=== PATIENT | male | born 1960 | race African-American/Black ===

== ENCOUNTER 2016-12-01 08:50 | Inpatient (IN) | payer OTHER ==
[2016-12-01] VITALS (18 sets, daily range): BP systolic 154–213; BP diastolic 78–118
[~2016-12-01] VITALS: Ht 177.8 cm; Wt 92.2 kg
[~2016-12-01 08:50] MED LIST: CARV6.252 PO; CYCL10TA2 PO; FURO20TA3 PO; FURO40TA4 PO; HYDR-2666 PO; HYDR-2868 PO; ISOS30TA4 PO; LISI-338 PO; METO25TA4 PO; PANT40TA5 PO; PRED20TA PO
--- NOTE | 2016-12-01 09:51 | PHYS DOC ---
Past Medical History Past Medical History: CHF, Hypertension, ME Past Surgical History: No Surgical History Alcohol Use: Sober Drug Use: None Adult General Chief Complaint Chief Complaint: OTHER COMPLAINTS [facility] HPI Patient is a 56 year old male presents emergency department stating that he wanted his blood pressure checked. He states that he had visiting doctors at his house yesterday that checked his blood pressure and it was elevated. Patient is a very poor historian as he is unable to provide me with a doctor's name of his primary care physician, he states that he takes blood pressure medication although does not know the name of the medication does not know whether he has the pill bottles at home. It is not sure for he obtains his prescription at. Patient denies any chest pain although he does state that he has had chest pain on and off. He denies any blurred vision, denies any lower leg swelling or edema. Review of Systems Review of Systems Constitutional: Denies fever or chills [] Eyes: Denies change in visual acuity, redness, or eye pain [] HENT: Denies nasal congestion or sore throat [] Respiratory: Denies cough or shortness of breath [] Cardiovascular: No additional information not addressed in HPI [] GI: Denies abdominal pain, nausea, vomiting, bloody stools or diarrhea [] : Denies dysuria or hematuria [] Musculoskeletal: Denies back pain or joint pain [] Integument: Denies rash or skin lesions [] Neurologic: Denies headache, focal weakness or sensory changes [] Endocrine: Denies polyuria or polydipsia [] Patient states he is here for evaluation of his blood pressure Current Medications Current Medications Current Medications Medications (Trade) Dose Ordered Sig/[facility] Start Time Stop Time Status Last Admin Dose Admin Aspirin (Children'S Aspirin) 324 mg 1X ONCE 12/01/16 10:15 12/01/16 10:16 DC 12/01/16 10:24 324 MG Nitroglycerin (Nitrostat) 0.4 mg PRN Q5MIN PRN 12/01/16 10:30 12/01/16 11:12 0.4 MG Allergies Allergies Allergies Coded Allergies Type Severity Reaction Last Updated Verified I S O L A T I O N *CONTACT* Allergy Unknown 12/17/15 Yes No Known Medication Allergies Allergy Unknown 12/17/15 Yes Physical Exam Physical Exam Constitutional: Well developed, well nourished, no acute distress, non-toxic appearance. [] HENT: Normocephalic, atraumatic, bilateral external ears normal, oropharynx moist, no oral exudates, nose normal. [] Eyes: PERRLA, EOMI, conjunctiva normal, no discharge. [] Neck: Normal range of motion, no tenderness, supple, no stridor. [] Cardiovascular:Heart rate regular rhythm, no murmur [] Lungs & Thorax: Bilateral breath sounds clear to auscultation [] Abdomen: Bowel sounds hypoactive, soft, no tenderness, no masses, no pulsatile masses. [] Skin: Warm, dry, no erythema, no rash. [] Back: No tenderness Extremities: No tenderness, no cyanosis, no clubbing, ROM intact, no edema. [] Neurologic: Alert and oriented X 3, normal motor function, normal sensory function, no focal deficits noted. [] Psychologic: Affect normal, judgement normal, mood normal. [] Current Patient Data Vital Signs Vital Signs Date Time Temp Pulse Resp B/P (MAP) Pulse Ox O2 Delivery O2 Flow Rate FiO2 12/01/16 11:12 67 187/119 12/01/16 10:17 19 99 12/01/16 09:13 98.4 Room Air 98.4 Lab Values Laboratory Tests Test 12/01/16 09:27 White Blood Count 7.1 x10^3/uL (4.0-11.0) Red Blood Count 5.17 x10^6/uL (4.30-5.70) Hemoglobin 13.3 g/dL (13.0-17.5) Hematocrit 41.5 % (39.0-53.0) Mean Corpuscular Volume 80 fL (79-100) Mean Corpuscular Hemoglobin 26 pg (25-35) Mean Corpuscular Hemoglobin Concent 32 g/dL (31-37) Red Cell Distribution Width 20.0 % (11.5-14.5) H Platelet Count 322 x10^3/uL (140-400) Neutrophils (%) (Auto) 51 % (31-73) Lymphocytes (%) (Auto) 37 % (24-48) Monocytes (%) (Auto) 9 % (0-9) Eosinophils (%) (Auto) 2 % (0-3) Basophils (%) (Auto) 1 % (0-3) Neutrophils # (Auto) 3.7 x10^3uL (1.8-7.7) Lymphocytes # (Auto) 2.6 x10^3/uL (1.0-4.8) Monocytes # (Auto) 0.6 x10^3/uL (0.0-1.1) Eosinophils # (Auto) 0.2 x10^3/uL (0.0-0.7) Basophils # (Auto) 0.1 x10^3/uL (0.0-0.2) Sodium Level 141 mmol/L (136-145) Potassium Level 4.0 mmol/L (3.5-5.1) Chloride Level 104 mmol/L (98-107) Carbon Dioxide Level 27 mmol/L (21-32) Anion Gap 10 (6-14) Blood Urea Nitrogen 19 mg/dL (8-26) Creatinine 1.3 mg/dL (0.7-1.3) Estimated GFR (Cockcroft-Gault) 69.1 BUN/Creatinine Ratio 15 (6-20) Glucose Level 120 mg/dL (70-99) H Calcium Level 9.5 mg/dL (8.5-10.1) Total Bilirubin 0.8 mg/dL (0.2-1.0) Aspartate Amino Transferase (AST) 22 U/L (15-37) Alanine Aminotransferase (ALT) 22 U/L (16-63) Alkaline Phosphatase 94 U/L (46-116) Troponin I Quantitative 0.526 ng/mL (0.000-0.055) Total Protein 8.7 g/dL (6.4-8.2) H Albumin 3.8 g/dL (3.4-5.0) Albumin/Globulin Ratio 0.8 (1.0-1.7) L Laboratory Tests 12/01/16 09:27 Laboratory Tests 12/01/16 09:27 EKG EKG [] Radiology/Procedures Radiology/Procedures [] Course & Med Decision Making Course & Med Decision Making Pertinent Labs and Imaging studies reviewed. (See chart for details) Spoke with patient in regards to being placed in to the hospital [address] Herr about patient being place into the hospital with recommendation for inpatient status. Dr Herr aware of BP, CBC, CMP, EKG. He has recommended hydralazine for BP at this time. Orders completed. [] Dragon Disclaimer Dragon Disclaimer This electronic medical record was generated, in whole or in part, using a voice recognition dictation system. Departure Departure Impression: Primary Impression: Elevated troponin Additional Impression: HTN (hypertension) Disposition: ADMITTED INPATIENT Admitting Physician: Chrsi Herr Referrals: NO PCP (PCP) Problem Qualifiers ANALI WILKERSON APRN December 01, 2016 09:51
[2016-12-01 09:57] LABS: BASO # 0.1 x10^3/uL (0.0-0.2); BASO % 1 % (0-3); EOS % 2 % (0-3); HEMATOCRIT 41.5 % (39.0-53.0); HEMOGLOBIN 13.3 g/dL (13.0-17.5); LYMPH # 2.6 x10^3/uL (1.0-4.8); LYMPH % 37 % (24-48); MEAN CORPUSCULAR HEMOGLOBIN 26 pg (25-35); MEAN CORPUSCULAR HGB CONC 32 g/dL (31-37); MEAN CORPUSCULAR VOLUME 80 fL (79-100); MONO % 9 % (0-9); NEUT % 51 % (31-73); PLATELET COUNT 322 x10^3/uL (140-400); RED BLOOD COUNT 5.17 x10^6/uL (4.30-5.70); WHITE BLOOD COUNT 7.1 x10^3/uL (4.0-11.0)
[2016-12-01 10:01] LABS: CALCIUM 9.5 mg/dL (8.5-10.1); CREATININE 1.3 mg/dL (0.7-1.3); GFR 69.1
[2016-12-01 10:07] LABS: ALBUMIN 3.8 g/dL (3.4-5.0); ALBUMIN/GLOBULIN RATIO 0.8 (1.0-1.7); TOTAL BILIRUBIN 0.8 mg/dL (0.2-1.0); TOTAL PROTEIN 8.7 g/dL (6.4-8.2)
[2016-12-01] MEDS ORDERED: ASPIRIN CHEWABLE 81 MG TABLET. PO ONE (10:15)
[2016-12-01] MEDS: NITROGLYCERIN SUBLINGUAL 0.4 MG BOTTLE OF 25. SL PRN ×2 (10:25→11:12)
--- NOTE | 2016-12-01 10:33 | EKG ---
[facility] [address] [place] [address] Test Date: 2016-12-01 Test Time: 10:00:41 Pat Name: TESFAYE CUEVAS Department: Room: Gender: M Obstetrics Nurse Practitioner: : 1960 Requested By: ANALI WILKERSON Order Number: [id number] Reading MD: Leatha Flowers Measurements Intervals [place] Rate: 80 P: 14 FL: 140 QRS: -11 QRSD: 102 T: 148 QT: 394 QTc: 458 Interpretive Statements SINUS RHYTHM LEFT ATRIAL ABNORMALITY LEFTWARD AXIS LVH WITH REPOLARIZATION ABNORMALITY ALSO CONSIDER MYOCARDIAL ISCHEMIA RI6.01 Unconfirmed report Electronically Signed On 12-03-2016 21:49:02 CDT by Leatha Flowers
--- NOTE | 2016-12-01 10:47 | RAD ---
Portable chest, 12/01/2016: History: High blood pressure, chest pain Comparison is made to a study from 01/12/2016. The heart is enlarged. There is tortuosity of the thoracic aorta. The pulmonary vascularity is normal. No pulmonary infiltrates are seen. There is no evidence of pleural fluid. IMPRESSION: 1. Mild cardiomegaly. 2. No acute abnormality is detected.
[2016-12-01] MEDS ORDERED: hydrALAZINE 20 MG/ML VIAL. IVP ONE (11:15)
--- NOTE | 2016-12-01 12:01 | ACF ---
Admit Criteria Forms Admit Criteria Forms Admit Criteria Forms HYPERTENSION Clinical Indications for Admission to Inpatient Care ( Place "X" for any and all applicable criteria): Admission is indicated for ANY ONE of the following(1)(2)(3)(4): [ ]I. Hypertensive emergency, with evidence of acute and progressing target organ disease as indicated by ANY ONE of the following: [ ]a) Hypertensive encephalopathy (eg, confusion, altered mental status) [ ]b) Cerebral infarction [ ]c) Intracranial hemorrhage [ ]d) Myocardial ischemia or infarction [ ]e) Pulmonary edema [ ]f) Aortic dissection [ ]g) Seizure [ ]h) Acute renal insufficiency [ ]i) Papilledema [ ]j) Microangiopathic hemolytic anemia [ ]II. Adrenergic crisis (eg, severe hypertension due to pheochromocytoma crisis, cocaine or amphetamine intoxication, or clonidine withdrawal) [X]III. Severe hypertension (SBP greater than 180 mmHg or DBP greater than 110 mmHg or greater than the 95th percentile for age, gender, and height in pediatric patients) that cannot be controlled (eg, to SBP less than 160 mmHg and DBP less than 100 mmHg in adults) by treatment with oral medication in emergency department or observation care Extended stay beyond goal length of stay may be needed for(11)(12)(13): [ ]a) Persistent hypertensive encephalopathy [ ]b) Continuation of pulmonary edema [ ]c) Recurring or persistent severe hypertension [ ]d) Target organ damage (eg, angina, stroke, aortic dissection) [ ]e) Associated renal insufficiency The original BDA content created by BDA has been revised. The portions of the content which have been revised are identified through the use of italic text or in bold, and [facility] has neither reviewed nor approved the modified material. All other unmodified content is copyright BDA. Please see references footnoted in the original BDA edition 2016 NANCIE OLVERA December 01, 2016 12:01
[2016-12-01] MEDS: LISINOPRIL 10 MG TABLET PO SCH (12:49)
[2016-12-01] MEDS: CARVEDILOL 12.5 MG TABLET. PO SCH ×2 (12:50→17:45)
[2016-12-01] MEDS: ISOSORBIDE MONONITRATE ER 30 MG TAB.ER.24H PO SCH (12:50)
--- NOTE | 2016-12-01 13:41 | PDOC1 ---
History and Physical Past Medical History Cardiovascular: HTN Pulmonary: No pertinent hx CENTRAL NERVOUS SYSTEM: Other GI: No pertinent hx Heme/Onc: No pertinent hx Hepatobiliary: No pertinent hx Psych: No pertinent hx Rheumatologic: No pertinent hx Infectious disease: No pertinent hx Renal/: No pertinent hx Endocrine: No pertinent hx Past Surgical History Past Surgical History: No pertinent history Family History Family History: Diabetes, Hypertension Social History ALCOHOL: other Drugs: None Current Problem List Problem List Problems Medical Problems: (1) Elevated troponin Status: Acute (2) HTN (hypertension) Status: Acute Current Medications Current Medications Current Medications Medications (Trade) Dose Ordered Sig/Deann Start Time Stop Time Status Last Admin Dose Admin Aspirin (Children'S Aspirin) 324 mg 1X ONCE 12/01/16 10:15 12/01/16 10:16 DC 12/01/16 10:24 324 MG Carvedilol (Coreg) 12.5 mg BIDWMEALS 12/01/16 12:45 12/01/16 12:50 12.5 MG Hydralazine HCl (Apresoline) 10 mg PRN Q4HRS PRN 12/01/16 12:45 Isosorbide Mononitrate (Imdur) 30 mg DAILY 12/01/16 12:45 12/01/16 12:50 30 MG Lisinopril (Prinivil) 10 mg DAILY 12/01/16 12:45 12/01/16 12:49 10 MG Nicardipine HCl 50 mg/Sodium Chloride 270 ml @ 0 mls/hr CONT PRN 12/01/16 13:30 UNV Nitroglycerin (Nitrostat) 0.4 mg PRN Q5MIN PRN 12/01/16 10:30 12/01/16 11:12 0.4 MG Allergies Allergies Allergies Coded Allergies Type Severity Reaction Last Updated Verified I S O L A T I O N *CONTACT* Allergy Unknown 12/17/15 Yes No Known Medication Allergies Allergy Unknown 12/17/15 Yes ROS Review of System CONSTITUTIONAL: No fever or chills EYES: No recent changes SKIN: No rash or itching CARDIOVASCULAR: Chest pain RESPIRATORY: No SOB or cough GASTROINTESTINAL: No nausea, vomiting or abdominal pain NEUROLOGICAL: No headaches or weakness ENDOCRINE: No cold or heat intolerance GENITOURINARY: No urgency or frequency of urination MUSCULOSKELETAL: No back pain or joint pain LYMPHATICS: No enlarged lymph nodes PSYCHIATRIC: No anxiety or depression Physical Exam Physical Exam GEN.: No apparent distress. Alert and oriented. HEENT: Head is normocephalic, atraumatic NECK: Supple. no JV LUNGS: Clear to auscultation.Normal airflow. HEART: RRR, S1, S2 present. Peripheral pulses intact ABDOMEN: Soft, nontender. Positive bowel sounds. umbical hernia EXTREMITIES: Without any cyanosis. NEUROLOGIC: Normal speech, normal tone PSYCHIATRIC: Normal affect, normal mood. SKIN: No ulcerations Vitals Vitals Vital Signs Date Time Temp Pulse Resp B/P (MAP) Pulse Ox O2 Delivery O2 Flow Rate FiO2 12/01/16 12:50 74 213/118 12/01/16 12:34 98.3 20 97 Room Air 98.3 Labs Labs Laboratory Tests Test 12/01/16 09:27 White Blood Count 7.1 x10^3/uL (4.0-11.0) Red Blood Count 5.17 x10^6/uL (4.30-5.70) Hemoglobin 13.3 g/dL (13.0-17.5) Hematocrit 41.5 % (39.0-53.0) Mean Corpuscular Volume 80 fL (79-100) Mean Corpuscular Hemoglobin 26 pg (25-35) Mean Corpuscular Hemoglobin Concent 32 g/dL (31-37) Red Cell Distribution Width 20.0 % (11.5-14.5) Platelet Count 322 x10^3/uL (140-400) Neutrophils (%) (Auto) 51 % (31-73) Lymphocytes (%) (Auto) 37 % (24-48) Monocytes (%) (Auto) 9 % (0-9) Eosinophils (%) (Auto) 2 % (0-3) Basophils (%) (Auto) 1 % (0-3) Neutrophils # (Auto) 3.7 x10^3uL (1.8-7.7) Lymphocytes # (Auto) 2.6 x10^3/uL (1.0-4.8) Monocytes # (Auto) 0.6 x10^3/uL (0.0-1.1) Eosinophils # (Auto) 0.2 x10^3/uL (0.0-0.7) Basophils # (Auto) 0.1 x10^3/uL (0.0-0.2) Sodium Level 141 mmol/L (136-145) Potassium Level 4.0 mmol/L (3.5-5.1) Chloride Level 104 mmol/L (98-107) Carbon Dioxide Level 27 mmol/L (21-32) Anion Gap 10 (6-14) Blood Urea Nitrogen 19 mg/dL (8-26) Creatinine 1.3 mg/dL (0.7-1.3) Estimated GFR (Cockcroft-Gault) 69.1 BUN/Creatinine Ratio 15 (6-20) Glucose Level 120 mg/dL (70-99) Calcium Level 9.5 mg/dL (8.5-10.1) Total Bilirubin 0.8 mg/dL (0.2-1.0) Aspartate Amino Transf (AST/SGOT) 22 U/L (15-37) Alanine Aminotransferase (ALT/SGPT) 22 U/L (16-63) Alkaline Phosphatase 94 U/L (46-116) Troponin I Quantitative 0.526 ng/mL (0.000-0.055) Total Protein 8.7 g/dL (6.4-8.2) Albumin 3.8 g/dL (3.4-5.0) Albumin/Globulin Ratio 0.8 (1.0-1.7) Laboratory Tests Test 12/01/16 09:27 White Blood Count 7.1 x10^3/uL (4.0-11.0) Red Blood Count 5.17 x10^6/uL (4.30-5.70) Hemoglobin 13.3 g/dL (13.0-17.5) Hematocrit 41.5 % (39.0-53.0) Mean Corpuscular Volume 80 fL (79-100) Mean Corpuscular Hemoglobin 26 pg (25-35) Mean Corpuscular Hemoglobin Concent 32 g/dL (31-37) Red Cell Distribution Width 20.0 % (11.5-14.5) Platelet Count 322 x10^3/uL (140-400) Neutrophils (%) (Auto) 51 % (31-73) Lymphocytes (%) (Auto) 37 % (24-48) Monocytes (%) (Auto) 9 % (0-9) Eosinophils (%) (Auto) 2 % (0-3) Basophils (%) (Auto) 1 % (0-3) Neutrophils # (Auto) 3.7 x10^3uL (1.8-7.7) Lymphocytes # (Auto) 2.6 x10^3/uL (1.0-4.8) Monocytes # (Auto) 0.6 x10^3/uL (0.0-1.1) Eosinophils # (Auto) 0.2 x10^3/uL (0.0-0.7) Basophils # (Auto) 0.1 x10^3/uL (0.0-0.2) Sodium Level 141 mmol/L (136-145) Potassium Level 4.0 mmol/L (3.5-5.1) Chloride Level 104 mmol/L (98-107) Carbon Dioxide Level 27 mmol/L (21-32) Anion Gap 10 (6-14) Blood Urea Nitrogen 19 mg/dL (8-26) Creatinine 1.3 mg/dL (0.7-1.3) Estimated GFR (Cockcroft-Gault) 69.1 BUN/Creatinine Ratio 15 (6-20) Glucose Level 120 mg/dL (70-99) Calcium Level 9.5 mg/dL (8.5-10.1) Total Bilirubin 0.8 mg/dL (0.2-1.0) Aspartate Amino Transf (AST/SGOT) 22 U/L (15-37) Alanine Aminotransferase (ALT/SGPT) 22 U/L (16-63) Alkaline Phosphatase 94 U/L (46-116) Troponin I Quantitative 0.526 ng/mL (0.000-0.055) Total Protein 8.7 g/dL (6.4-8.2) Albumin 3.8 g/dL (3.4-5.0) Albumin/Globulin Ratio 0.8 (1.0-1.7) VTE Prophylaxis Ordered VTE Prophylaxis Devices: Yes VTE Pharmacological Prophylaxi: Yes MONICA PATIÑO MD December 01, 2016 13:41
--- NOTE | 2016-12-01 14:49 | PDOC2 ---
CARDIAC CONSULT DATE OF CONSULT Date of Consult DATE: 12/01/16 TIME: 14:30 REASON FOR CONSULT Reason for Consult: Elevated troponin REFERRING PHYSICIAN Referring Physician: Melita Ortiz APRN SOURCE Source: Chart review, Patient HISTORY OF PRESENT ILLNESS HISTORY OF PRESENT ILLNESS This is an 56 yo male who presented secondary to BP. Apparently home care nurse was out at home yesterday and noted to be elevated. Recommended patient to come to the ED for treatment but he waited until this morning to come. Patient poor historian and unable to give details of provider or medications. Reports that his mother sets up his medications for him. Referred me to contact his mother. Contacted Massiel Arce, mother, who provided me with his medication list. Reports he has been compliant with his medications. Although she was not home, reports that doctor and nurse came to the home yesterday and noted his blood pressure to be elevated. Called in two new prescriptions to [facility] ( medications not known) and encouraged him to go to the ED for BP treatment. Patient additionally reports occasional chest pain for the last week intermittently. Describes as an aching in his left chest. Denies any nausea/ vomiting, dizziness, diaphoresis, palpitations, or SOA. PAST MEDICAL HISTORY Cardiovascular: CHF (NICM), HTN, [place] (NSTEMI), Hyperlipidemia, Other Pulmonary: No pertinent hx GI: GI bleed (s/p endoclips ) Hepatobiliary: No pertinent hx Psych: No pertinent hx Rheumatologic: No pertinent hx Infectious disease: No pertinent hx ENT: No pertinent hx Renal/: No pertinent hx Endocrine: No pertinent hx Dermatology: No pertinent hx PAST SURGICAL HISTORY Past Surgical History: No pertinent history FAMILY HISTORY Family History: Hypertension SOCIAL HISTORY Smoke: 1 pack per day ALCOHOL: occassional Drugs: None Lives: with Family CURRENT MEDICATIONS CURRENT MEDICATIONS Current Medications Medications (Trade) Dose Ordered Sig/Deann Route PRN Reason Start Time Stop Time Status Last Admin Dose Admin Aspirin (Children'S Aspirin) 324 mg 1X ONCE PO 12/01/16 10:15 12/01/16 10:16 DC 12/01/16 10:24 Nitroglycerin (Nitrostat) 0.4 mg PRN Q5MIN PRN SL CHEST PAIN 12/01/16 10:30 12/01/16 11:12 Hydralazine HCl (Apresoline) 10 mg 1X ONCE IVP 12/01/16 11:15 12/01/16 11:24 DC 12/01/16 11:33 Isosorbide Mononitrate (Imdur) 30 mg DAILY PO 12/01/16 12:45 12/01/16 12:50 Lisinopril (Prinivil) 10 mg DAILY PO 12/01/16 12:45 12/01/16 12:49 Carvedilol (Coreg) 12.5 mg BIDWMEALS PO 12/01/16 12:45 12/01/16 12:50 Nicardipine HCl 50 mg/Sodium Chloride 270 ml @ 25 mls/hr CONT PRN IV SEE I/O RECORD 12/01/16 14:00 12/01/16 13:38 ALLERGIES ALLERGIES: Coded Allergies: I S O L A T I O N *CONTACT* (Verified Allergy, Unknown, 12/17/15) mrsa screen + No Known Medication Allergies (Verified Allergy, Unknown, 12/17/15) ROS Review of System 14 point ROS conducted with pertinent positives noted above in HPI although limited as patient is a poor historian. PHYSICAL EXAM General: Alert, Oriented X3, Cooperative, No acute distress HEENT: Atraumatic, Mucous membr. moist/pink Lungs: Clear to auscultation, Normal air movement Heart: Regular rate, Normal S1, Normal S2 Abdomen: Soft, No tenderness Extremities: No edema, Normal pulses Skin: No significant lesion Neuro: Normal speech, Sensation intact Psych/Mental Status: Mental status NL, Mood NL MUSCULOSKELETAL: Full range of motion without pain VITALS VITALS Vital Signs Date Time Temp Pulse Resp B/P (MAP) Pulse Ox O2 Delivery O2 Flow Rate FiO2 12/01/16 12:50 74 213/118 12/01/16 12:34 98.3 20 97 Room Air 98.3 LABS Lab: Laboratory Tests Test 12/01/16 09:27 White Blood Count 7.1 x10^3/uL (4.0-11.0) Red Blood Count 5.17 x10^6/uL (4.30-5.70) Hemoglobin 13.3 g/dL (13.0-17.5) Hematocrit 41.5 % (39.0-53.0) Mean Corpuscular Volume 80 fL (79-100) Mean Corpuscular Hemoglobin 26 pg (25-35) Mean Corpuscular Hemoglobin Concent 32 g/dL (31-37) Red Cell Distribution Width 20.0 % (11.5-14.5) Platelet Count 322 x10^3/uL (140-400) Neutrophils (%) (Auto) 51 % (31-73) Lymphocytes (%) (Auto) 37 % (24-48) Monocytes (%) (Auto) 9 % (0-9) Eosinophils (%) (Auto) 2 % (0-3) Basophils (%) (Auto) 1 % (0-3) Neutrophils # (Auto) 3.7 x10^3uL (1.8-7.7) Lymphocytes # (Auto) 2.6 x10^3/uL (1.0-4.8) Monocytes # (Auto) 0.6 x10^3/uL (0.0-1.1) Eosinophils # (Auto) 0.2 x10^3/uL (0.0-0.7) Basophils # (Auto) 0.1 x10^3/uL (0.0-0.2) Sodium Level 141 mmol/L (136-145) Potassium Level 4.0 mmol/L (3.5-5.1) Chloride Level 104 mmol/L (98-107) Carbon Dioxide Level 27 mmol/L (21-32) Anion Gap 10 (6-14) Blood Urea Nitrogen 19 mg/dL (8-26) Creatinine 1.3 mg/dL (0.7-1.3) Estimated GFR (Cockcroft-Gault) 69.1 BUN/Creatinine Ratio 15 (6-20) Glucose Level 120 mg/dL (70-99) Calcium Level 9.5 mg/dL (8.5-10.1) Total Bilirubin 0.8 mg/dL (0.2-1.0) Aspartate Amino Transf (AST/SGOT) 22 U/L (15-37) Alanine Aminotransferase (ALT/SGPT) 22 U/L (16-63) Alkaline Phosphatase 94 U/L (46-116) Troponin I Quantitative 0.526 ng/mL (0.000-0.055) Total Protein 8.7 g/dL (6.4-8.2) Albumin 3.8 g/dL (3.4-5.0) Albumin/Globulin Ratio 0.8 (1.0-1.7) ECHOCARDIOGRAM ECHOCARDIOGRAM DATE: 12/15/15 1116 <Conclusion> Severe global left ventricular systolic dysfunction. The Ejection Fraction is estimated at 15-20%. Moderate aortic regurgitation. Mild mitral regurgitation. Mild tricuspid regurgitation. There is mild pulmonary hypertension. The PA pressure was estimated at 45 mmHg. There is a trace circumferential pericardial effusion. DATE: 05/04/16 1442 Conclusion> Left ventricle systolic function is normal. The Ejection Fraction is 50-55%. There is normal LV segmental wall motion. Mild to moderate aortic regurgitation. Mild mitral regurgitation. The ascending aorta is mildly dilated at 4.0 cm. There is no evidence of significant pericardial effusion. HEART CATH HEART CATH FINDINGS 1. Hemodynamics: Left ventricular end-diastolic pressure 20 mmHg. No pullback gradient across the aortic valve. 2. Coronary angiography: a. The left main coronary artery arose from the left sinus of Valsalva, gave rise to the left anterior descending and left circumflex arteries and did not show any significant stenosis. b. The left anterior descending artery did not show any significant stenosis. c. The left circumflex artery was a large and dominant vessel that did not show any significant stenosis. d. The right coronary artery was a nondominant vessel that did not show any significant stenosis. Conclusion No significant coronary artery disease DATE: 12/16/15 1305 ASSESSMENT/PLAN ASSESSMENT/PLAN 1. NSTEMI, likely type II demand ischemia related to malignant HTN 2. Chest pain, atypical; cath 12/25 without obstructive disease 3. Malignant hypertension; improved with Cardene gtt. 4. H/o non-ischemic cardiomyopathy with LV recovery to 50-55% (04/26); previously 15-20% 5. Hyperlipidemia 6. Tobaccoism; encouraged cessation Recommendations Trend enzymes. Doubt ACS. Check lipids Echo to evaluate LV function/presence of WMA Resume home antiHTN therapy; titrate off Cardene as able. Increase JOÃO and BB. Monitor trends to assess need for further titration. Hydralazine IV PRN Problems: EL MO APRN December 01, 2016 14:49
[2016-12-01] MEDS ORDERED: LISI10TA2 PO (18:51)
[2016-12-01] MEDS ORDERED: CARV12.52 PO (18:51)
[2016-12-01] MEDS: hydrALAZINE 25 MG TABLET PO SCH (20:24)
[2016-12-01 21:03] LABS: BARBITURATES NEG (NEG); BENZODIAZEPINES NEG (NEG); CANNABINOIDS NEG (NEG); COCAINE NEG (NEG); METHADONE NEG (NEG); OPIATES NEG (NEG); PHENCYCLIDINE NEG (NEG)
[2016-12-01] MEDS: hydrALAZINE 20 MG/ML VIAL. IVP PRN (23:53)
[2016-12-02] VITALS (9 sets, daily range): BP systolic 116–178; BP diastolic 70–93
[2016-12-02 03:03] LABS: BASO # 0.1 x10^3/uL (0.0-0.2); BASO % 1 % (0-3); EOS % 3 % (0-3); HEMATOCRIT 39.8 % (39.0-53.0); HEMOGLOBIN 12.6 g/dL (13.0-17.5); LYMPH # 2.6 x10^3/uL (1.0-4.8); LYMPH % 33 % (24-48); MEAN CORPUSCULAR HEMOGLOBIN 25 pg (25-35); MEAN CORPUSCULAR HGB CONC 32 g/dL (31-37); MEAN CORPUSCULAR VOLUME 80 fL (79-100); MONO % 9 % (0-9); NEUT % 54 % (31-73); PLATELET COUNT 315 x10^3/uL (140-400); RED BLOOD COUNT 4.98 x10^6/uL (4.30-5.70); RED CELL DISTRIBUTION WIDTH 19.1 % (11.5-14.5)
[2016-12-02 03:19] LABS: CALCIUM 8.8 mg/dL (8.5-10.1); CREATININE 1.2 mg/dL (0.7-1.3); GFR 75.8; POTASSIUM 3.7 mmol/L (3.5-5.1)
[2016-12-02 03:28] LABS: CHOLESTEROL/HDL RATIO 5.4
[2016-12-02] MEDS: hydrALAZINE 20 MG/ML VIAL. IVP PRN (04:18)
--- NOTE | 2016-12-02 07:17 | HP ---
ADMIT DATE: 12/01/2016 CHIEF COMPLAINT: Chest pain. HISTORY OF PRESENT ILLNESS: A 56-year-old male patient with a prior history of hypertension, presented to the ER with complaints of chest pain. The patient initially presented to the ER to check his blood pressure as per the report, the patient had elevated blood pressures noted by visiting physician and the patient says his mom helps him to give his medications, but he did not recall his home medications. He complains of chest pain on the left side. It comes and goes and denies any nausea, vomiting, sweating or radiation. 10/19, The patient had nonischemic cardiomyopathy in 2015, LV ejection fraction improved with IV diuresis in the past. PAST MEDICAL HISTORY: Nonischemic cardiomyopathy, hypertension. PAST SURGICAL HISTORY: None. PERSONAL HISTORY: Currently, not taking any alcohol, but smokes less than 1 pack a day. No substance abuse. FAMILY HISTORY: Please see my electronic H and P. REVIEW OF SYSTEMS: Please see my electronic H and P. PHYSICAL EXAMINATION: Please see my electronic H and P. ALLERGIES: Please see my electronic H and P. LABORATORY FINDINGS: BMP within normal limits. Troponin is 0.526. PT is 17.0, INR is 1.5. Hematology: CBC within normal limits. IMAGING STUDIES: Chest x-ray, no acute process seen. EKG personally reviewed, LVH with strain pattern. No acute ST-T wave changes seen, compared with old EKG. ASSESSMENT AND PLAN: 1. Chest pain with mild elevation of troponins, likely due to uncontrolled hypertension. Type NSTEMI 2. Malignant hypertension, present on admission. Blood pressure 213/118. Did not improve with IV hydralazine. He has been started on nicardipine drip, goal today SBP< 170. 3. The patient was started on Coreg, lisinopril and Imdur. 4. Old records reviewed. He had a cardiac catheterization in 2016, has normal coronaries. 5. welfare worker consult. 6. Prognosis guarded. 7. Nicotine patch PRN MONICA PATIÑO MD DR: GINGER/prema JOB#: [id number] / [id number] [id number]
[2016-12-02] MEDS: CARVEDILOL 12.5 MG TABLET. PO SCH ×2 (08:45→17:40)
[2016-12-02] MEDS: FUROSEMIDE 40 MG TABLET. PO SCH ×2 (08:46→14:53)
[2016-12-02] MEDS: ISOSORBIDE MONONITRATE ER 30 MG TAB.ER.24H PO SCH (08:46)
[2016-12-02] MEDS: LISINOPRIL 10 MG TABLET PO SCH (08:46)
[2016-12-02] MEDS: hydrALAZINE 25 MG TABLET PO SCH ×2 (08:47→20:43)
[2016-12-02] MEDS ORDERED: LISINOPRIL 10 MG TABLET PO ONE (10:45)
--- NOTE | 2016-12-02 10:48 | PDOC ---
EL MO DENTAL APPLIANCE REPAIRER 12/02/16 1048: CARDIO Progress Notes Date and Time Date of Service 12/02/16 Time of Evaluation 1035 Subjective Subjective: No Chest Pain, No shortness of breath Vitals Vitals Vital Signs Date Time Temp Pulse Resp B/P (MAP) Pulse Ox O2 Delivery O2 Flow Rate FiO2 12/02/16 08:47 93 153/93 12/02/16 07:47 Room Air 12/02/16 07:00 98.3 18 96 98.3 Weight Weight [ ] Input and Output Intake and Output Intake and Output 12/02/16 07:00 Intake Total 916.33 ml Output Total 1225 ml Balance -308.67 ml Intake Oral 760 ml IV Total 156.33 ml Output Urine Total 1225 ml Laboratory Labs Laboratory Tests Test 12/01/16 15:10 12/01/16 17:55 12/01/16 23:05 12/02/16 02:25 Urine Opiates Screen Neg (NEG) Urine Methadone Screen Neg (NEG) Urine Barbiturates Neg (NEG) Urine Phencyclidine Screen Neg (NEG) Urine Amphetamine/Methamphetamine Neg (NEG) Urine Benzodiazepines Screen Neg (NEG) Urine Cocaine Screen Neg (NEG) Urine Cannabinoids Screen Neg (NEG) Urine Ethyl Alcohol Neg (NEG) Troponin I Quantitative 0.554 ng/mL (0.000-0.055) 0.521 ng/mL (0.000-0.055) White Blood Count 8.0 x10^3/uL (4.0-11.0) Red Blood Count 4.98 x10^6/uL (4.30-5.70) Hemoglobin 12.6 g/dL (13.0-17.5) Hematocrit 39.8 % (39.0-53.0) Mean Corpuscular Volume 80 fL (79-100) Mean Corpuscular Hemoglobin 25 pg (25-35) Mean Corpuscular Hemoglobin Concent 32 g/dL (31-37) Red Cell Distribution Width 19.1 % (11.5-14.5) Platelet Count 315 x10^3/uL (140-400) Neutrophils (%) (Auto) 54 % (31-73) Lymphocytes (%) (Auto) 33 % (24-48) Monocytes (%) (Auto) 9 % (0-9) Eosinophils (%) (Auto) 3 % (0-3) Basophils (%) (Auto) 1 % (0-3) Neutrophils # (Auto) 4.3 x10^3uL (1.8-7.7) Lymphocytes # (Auto) 2.6 x10^3/uL (1.0-4.8) Monocytes # (Auto) 0.7 x10^3/uL (0.0-1.1) Eosinophils # (Auto) 0.2 x10^3/uL (0.0-0.7) Basophils # (Auto) 0.1 x10^3/uL (0.0-0.2) Sodium Level 139 mmol/L (136-145) Potassium Level 3.7 mmol/L (3.5-5.1) Chloride Level 102 mmol/L (98-107) Carbon Dioxide Level 27 mmol/L (21-32) Anion Gap 10 (6-14) Blood Urea Nitrogen 18 mg/dL (8-26) Creatinine 1.2 mg/dL (0.7-1.3) Estimated GFR (Cockcroft-Gault) 75.8 Glucose Level 114 mg/dL (70-99) Calcium Level 8.8 mg/dL (8.5-10.1) Triglycerides Level 124 mg/dL (0-150) Cholesterol Level 177 mg/dL (0-200) LDL Cholesterol, Calculated 119 mg/dL (0-100) VLDL Cholesterol, Calculated 25 mg/dL (0-40) Non-HDL Cholesterol Calculated 144 mg/dL (0-129) HDL Cholesterol 33 mg/dL (40-60) Cholesterol/HDL Ratio 5.4 Physical Exam HEENT: Neck Supple W Full Motion Chest: Symmetric LUNGS: Clear to Auscultation Heart: RRR Abdomen: Normal Aortic Impulse, Soft N/T Extremities: 2+ Dorsalis Pedis, No Edema Neurology: alert, oriented, follow commands Assessment Assessment 1. NSTEMI, likely type II demand ischemia related to malignant HTN 2. Chest pain, atypical; cath 12/25 without obstructive disease 3. Malignant hypertension; improved but remains labile. Cardene gtt off. 4. H/o non-ischemic cardiomyopathy with LV recovery to 50-55% (04/26); previously 15-20% 5. Hyperlipidemia; LDL 119 6. Tobaccoism; encouraged cessation 7. Limited social support; now with HH Recommendations Will increase JOÃO for better BP control Echo pending to evaluate LV function/presence of WMA. If no significant abnormalities, may discharge from a CV standpoint and f/u in our office in 3-4 weeks. Monitor trends to assess need for further titration. Hydralazine IV PRN Discussed importance of medication compliance ABI RAMIREZ MD 12/02/16 1549: CARDIO Progress Notes Assessment Assessment Patient seen and examined. Agree with DUPLICATOR PUNCH SET UP OPERATOR's assessment and plan. Non-STEMI type II most probably secondary to subendocardial ischemia from accelerated hypertension Blood pressure much better controlled and patient is presently off Cardene Continue current medical regimen EL MO APRN December 02, 2016 10:48 ABI RAMIREZ MD December 02, 2016 15:49
--- NOTE | 2016-12-02 12:54 | PDOC ---
PROGRESS NOTES Chief Complaint Chief Complaint cc: chest pain A/P Malignant HTN NSTEMI type 2 Plan off nicardipine gtt Bp medications adjusted, wait for response, Echo pending d/w cardiology. History of Present Illness History of Present Illness no chest pain no fever doing better. Vitals Vitals Vital Signs Date Time Temp Pulse Resp B/P (MAP) Pulse Ox O2 Delivery O2 Flow Rate FiO2 12/02/16 11:02 87 116/74 12/02/16 11:00 98.9 18 96 Room Air 98.9 Physical Exam General: Alert, Oriented X3, Cooperative, No acute distress Heart: Regular rate, Normal S1, Normal S2 Lungs: Clear Abdomen: Soft, No tenderness Extremities: No edema, Normal pulses Skin: No significant lesion Labs LABS Laboratory Tests Test 12/01/16 15:10 12/01/16 17:55 12/01/16 23:05 12/02/16 02:25 Urine Opiates Screen Neg (NEG) Urine Methadone Screen Neg (NEG) Urine Barbiturates Neg (NEG) Urine Phencyclidine Screen Neg (NEG) Urine Amphetamine/Methamphetamine Neg (NEG) Urine Benzodiazepines Screen Neg (NEG) Urine Cocaine Screen Neg (NEG) Urine Cannabinoids Screen Neg (NEG) Urine Ethyl Alcohol Neg (NEG) Troponin I Quantitative 0.554 ng/mL (0.000-0.055) 0.521 ng/mL (0.000-0.055) White Blood Count 8.0 x10^3/uL (4.0-11.0) Red Blood Count 4.98 x10^6/uL (4.30-5.70) Hemoglobin 12.6 g/dL (13.0-17.5) Hematocrit 39.8 % (39.0-53.0) Mean Corpuscular Volume 80 fL (79-100) Mean Corpuscular Hemoglobin 25 pg (25-35) Mean Corpuscular Hemoglobin Concent 32 g/dL (31-37) Red Cell Distribution Width 19.1 % (11.5-14.5) Platelet Count 315 x10^3/uL (140-400) Neutrophils (%) (Auto) 54 % (31-73) Lymphocytes (%) (Auto) 33 % (24-48) Monocytes (%) (Auto) 9 % (0-9) Eosinophils (%) (Auto) 3 % (0-3) Basophils (%) (Auto) 1 % (0-3) Neutrophils # (Auto) 4.3 x10^3uL (1.8-7.7) Lymphocytes # (Auto) 2.6 x10^3/uL (1.0-4.8) Monocytes # (Auto) 0.7 x10^3/uL (0.0-1.1) Eosinophils # (Auto) 0.2 x10^3/uL (0.0-0.7) Basophils # (Auto) 0.1 x10^3/uL (0.0-0.2) Sodium Level 139 mmol/L (136-145) Potassium Level 3.7 mmol/L (3.5-5.1) Chloride Level 102 mmol/L (98-107) Carbon Dioxide Level 27 mmol/L (21-32) Anion Gap 10 (6-14) Blood Urea Nitrogen 18 mg/dL (8-26) Creatinine 1.2 mg/dL (0.7-1.3) Estimated GFR (Cockcroft-Gault) 75.8 Glucose Level 114 mg/dL (70-99) Calcium Level 8.8 mg/dL (8.5-10.1) Triglycerides Level 124 mg/dL (0-150) Cholesterol Level 177 mg/dL (0-200) LDL Cholesterol, Calculated 119 mg/dL (0-100) VLDL Cholesterol, Calculated 25 mg/dL (0-40) Non-HDL Cholesterol Calculated 144 mg/dL (0-129) HDL Cholesterol 33 mg/dL (40-60) Cholesterol/HDL Ratio 5.4 Assessment and Plan Assessmemt and Plan Problems Medical Problems: (1) Elevated troponin Status: Acute (2) HTN (hypertension) Status: Acute Problems: Comment Review of Relevant I have reviewed the following items amanda (where applicable) has been applied. Labs Laboratory Tests Test 12/01/16 09:27 12/01/16 15:10 12/01/16 17:55 12/01/16 23:05 White Blood Count 7.1 x10^3/uL (4.0-11.0) Red Blood Count 5.17 x10^6/uL (4.30-5.70) Hemoglobin 13.3 g/dL (13.0-17.5) Hematocrit 41.5 % (39.0-53.0) Mean Corpuscular Volume 80 fL (79-100) Mean Corpuscular Hemoglobin 26 pg (25-35) Mean Corpuscular Hemoglobin Concent 32 g/dL (31-37) Red Cell Distribution Width 20.0 % (11.5-14.5) Platelet Count 322 x10^3/uL (140-400) Neutrophils (%) (Auto) 51 % (31-73) Lymphocytes (%) (Auto) 37 % (24-48) Monocytes (%) (Auto) 9 % (0-9) Eosinophils (%) (Auto) 2 % (0-3) Basophils (%) (Auto) 1 % (0-3) Neutrophils # (Auto) 3.7 x10^3uL (1.8-7.7) Lymphocytes # (Auto) 2.6 x10^3/uL (1.0-4.8) Monocytes # (Auto) 0.6 x10^3/uL (0.0-1.1) Eosinophils # (Auto) 0.2 x10^3/uL (0.0-0.7) Basophils # (Auto) 0.1 x10^3/uL (0.0-0.2) Sodium Level 141 mmol/L (136-145) Potassium Level 4.0 mmol/L (3.5-5.1) Chloride Level 104 mmol/L (98-107) Carbon Dioxide Level 27 mmol/L (21-32) Anion Gap 10 (6-14) Blood Urea Nitrogen 19 mg/dL (8-26) Creatinine 1.3 mg/dL (0.7-1.3) Estimated GFR (Cockcroft-Gault) 69.1 BUN/Creatinine Ratio 15 (6-20) Glucose Level 120 mg/dL (70-99) Calcium Level 9.5 mg/dL (8.5-10.1) Total Bilirubin 0.8 mg/dL (0.2-1.0) Aspartate Amino Transf (AST/SGOT) 22 U/L (15-37) Alanine Aminotransferase (ALT/SGPT) 22 U/L (16-63) Alkaline Phosphatase 94 U/L (46-116) Troponin I Quantitative 0.526 ng/mL (0.000-0.055) 0.554 ng/mL (0.000-0.055) 0.521 ng/mL (0.000-0.055) Total Protein 8.7 g/dL (6.4-8.2) Albumin 3.8 g/dL (3.4-5.0) Albumin/Globulin Ratio 0.8 (1.0-1.7) Urine Opiates Screen Neg (NEG) Urine Methadone Screen Neg (NEG) Urine Barbiturates Neg (NEG) Urine Phencyclidine Screen Neg (NEG) Urine Amphetamine/Methamphetamine Neg (NEG) Urine Benzodiazepines Screen Neg (NEG) Urine Cocaine Screen Neg (NEG) Urine Cannabinoids Screen Neg (NEG) Urine Ethyl Alcohol Neg (NEG) Test 12/02/16 02:25 White Blood Count 8.0 x10^3/uL (4.0-11.0) Red Blood Count 4.98 x10^6/uL (4.30-5.70) Hemoglobin 12.6 g/dL (13.0-17.5) Hematocrit 39.8 % (39.0-53.0) Mean Corpuscular Volume 80 fL (79-100) Mean Corpuscular Hemoglobin 25 pg (25-35) Mean Corpuscular Hemoglobin Concent 32 g/dL (31-37) Red Cell Distribution Width 19.1 % (11.5-14.5) Platelet Count 315 x10^3/uL (140-400) Neutrophils (%) (Auto) 54 % (31-73) Lymphocytes (%) (Auto) 33 % (24-48) Monocytes (%) (Auto) 9 % (0-9) Eosinophils (%) (Auto) 3 % (0-3) Basophils (%) (Auto) 1 % (0-3) Neutrophils # (Auto) 4.3 x10^3uL (1.8-7.7) Lymphocytes # (Auto) 2.6 x10^3/uL (1.0-4.8) Monocytes # (Auto) 0.7 x10^3/uL (0.0-1.1) Eosinophils # (Auto) 0.2 x10^3/uL (0.0-0.7) Basophils # (Auto) 0.1 x10^3/uL (0.0-0.2) Sodium Level 139 mmol/L (136-145) Potassium Level 3.7 mmol/L (3.5-5.1) Chloride Level 102 mmol/L (98-107) Carbon Dioxide Level 27 mmol/L (21-32) Anion Gap 10 (6-14) Blood Urea Nitrogen 18 mg/dL (8-26) Creatinine 1.2 mg/dL (0.7-1.3) Estimated GFR (Cockcroft-Gault) 75.8 Glucose Level 114 mg/dL (70-99) Calcium Level 8.8 mg/dL (8.5-10.1) Triglycerides Level 124 mg/dL (0-150) Cholesterol Level 177 mg/dL (0-200) LDL Cholesterol, Calculated 119 mg/dL (0-100) VLDL Cholesterol, Calculated 25 mg/dL (0-40) Non-HDL Cholesterol Calculated 144 mg/dL (0-129) HDL Cholesterol 33 mg/dL (40-60) Cholesterol/HDL Ratio 5.4 Laboratory Tests Test 12/01/16 15:10 12/01/16 17:55 12/01/16 23:05 12/02/16 02:25 Urine Opiates Screen Neg (NEG) Urine Methadone Screen Neg (NEG) Urine Barbiturates Neg (NEG) Urine Phencyclidine Screen Neg (NEG) Urine Amphetamine/Methamphetamine Neg (NEG) Urine Benzodiazepines Screen Neg (NEG) Urine Cocaine Screen Neg (NEG) Urine Cannabinoids Screen Neg (NEG) Urine Ethyl Alcohol Neg (NEG) Troponin I Quantitative 0.554 ng/mL (0.000-0.055) 0.521 ng/mL (0.000-0.055) White Blood Count 8.0 x10^3/uL (4.0-11.0) Red Blood Count 4.98 x10^6/uL (4.30-5.70) Hemoglobin 12.6 g/dL (13.0-17.5) Hematocrit 39.8 % (39.0-53.0) Mean Corpuscular Volume 80 fL (79-100) Mean Corpuscular Hemoglobin 25 pg (25-35) Mean Corpuscular Hemoglobin Concent 32 g/dL (31-37) Red Cell Distribution Width 19.1 % (11.5-14.5) Platelet Count 315 x10^3/uL (140-400) Neutrophils (%) (Auto) 54 % (31-73) Lymphocytes (%) (Auto) 33 % (24-48) Monocytes (%) (Auto) 9 % (0-9) Eosinophils (%) (Auto) 3 % (0-3) Basophils (%) (Auto) 1 % (0-3) Neutrophils # (Auto) 4.3 x10^3uL (1.8-7.7) Lymphocytes # (Auto) 2.6 x10^3/uL (1.0-4.8) Monocytes # (Auto) 0.7 x10^3/uL (0.0-1.1) Eosinophils # (Auto) 0.2 x10^3/uL (0.0-0.7) Basophils # (Auto) 0.1 x10^3/uL (0.0-0.2) Sodium Level 139 mmol/L (136-145) Potassium Level 3.7 mmol/L (3.5-5.1) Chloride Level 102 mmol/L (98-107) Carbon Dioxide Level 27 mmol/L (21-32) Anion Gap 10 (6-14) Blood Urea Nitrogen 18 mg/dL (8-26) Creatinine 1.2 mg/dL (0.7-1.3) Estimated GFR (Cockcroft-Gault) 75.8 Glucose Level 114 mg/dL (70-99) Calcium Level 8.8 mg/dL (8.5-10.1) Triglycerides Level 124 mg/dL (0-150) Cholesterol Level 177 mg/dL (0-200) LDL Cholesterol, Calculated 119 mg/dL (0-100) VLDL Cholesterol, Calculated 25 mg/dL (0-40) Non-HDL Cholesterol Calculated 144 mg/dL (0-129) HDL Cholesterol 33 mg/dL (40-60) Cholesterol/HDL Ratio 5.4 Medications Current Medications Aspirin (Children'S Aspirin) 324 mg 1X ONCE PO Last administered on 12/01/16 10:24; Start 12/01/16 at 10:15; Stop 12/01/16 at 10:16; Status DC Nitroglycerin (Nitrostat) 0.4 mg PRN Q5MIN PRN SL CHEST PAIN Last administered on 12/01/16 11:12; Start 12/01/16 at 10:30 Hydralazine HCl (Apresoline) 10 mg 1X ONCE IVP Last administered on 12/01/16 11:33; Start 12/01/16 at 11:15; Stop 12/01/16 at 11:24; Status DC Isosorbide Mononitrate (Imdur) 30 mg DAILY PO Last administered on 12/02/16 08 :46; Start 12/01/16 at 12:45 Lisinopril (Prinivil) 10 mg DAILY PO Last administered on 12/02/16 08:46; Start 12/01/16 at 12:45; Stop 12/02/16 at 10:47; Status DC Carvedilol (Coreg) 12.5 mg BIDWMEALS PO Last administered on 12/02/16 08:45; Start 12/01/16 at 12:45 Hydralazine HCl (Apresoline) 10 mg PRN Q4HRS PRN IVP ELEVATED BP, SEE COMMENTS Last administered on 12/02/16 04:18; Start 12/01/16 at 12:45 Nicardipine HCl 50 mg/Sodium Chloride 270 ml @ 25 mls/hr CONT PRN IV SEE I/O RECORD Last administered on 12/01/16 13:38; Start 12/01/16 at 14:00 Furosemide (Lasix) 40 mg BID92 PO Last administered on 12/02/16 08:46; Start 12/02/16 at 09:00 Hydralazine HCl (Apresoline) 50 mg BID PO Last administered on 12/02/16 08:47 ; Start 12/01/16 at 21:00 Lisinopril (Prinivil) 10 mg 1X ONCE PO Last administered on 12/02/16 11:02; Start 12/02/16 at 10:45; Stop 12/02/16 at 10:48; Status DC Lisinopril (Prinivil) 20 mg DAILY PO ; Start 12/03/16 at 09:00 Active Scripts Active Hydralazine Hcl 25 Mg Tablet 50 Mg PO BID Isosorbide Mononitrate Er (Isosorbide Mononitrate) 30 Mg Tab.er.24h 30 Mg PO DAILY Furosemide 40 Mg Tablet 40 Mg PO [id number] Pantoprazole Sodium 40 Mg Tablet.dr 40 Mg PO DAILYAC Reported Lisinopril 10 Mg Tablet 1 Tab PO DAILY Carvedilol 12.5 Mg Tablet 1 Tab PO BID Vitals/I & O Vital Sign - Last 24 Hours 12/01/16 12/01/16 12/01/16 12/01/16 14:34 17:45 18:56 19:11 Temp 98.7 98.7 Pulse 71 88 Resp 18 B/P (MAP) 196/102 (133) 175/103 165/86 (112) 163/96 (118) Pulse Ox 96 O2 Delivery Room Air 12/01/16 12/01/16 12/01/16 12/01/16 19:30 19:41 19:56 20:11 Temp 98.1 98.1 Pulse 72 Resp 18 B/P (MAP) 156/82 (106) 185/99 (127) 171/91 (117) 173/88 (116) Pulse Ox 93 O2 Delivery Room Air 12/01/16 12/01/16 12/01/16 12/01/16 20:24 20:26 20:41 20:56 Pulse 73 B/P (MAP) 173/88 173/89 (117) 168/85 (112) 156/85 (108) 12/01/16 12/01/16 12/01/16 12/01/16 21:11 21:26 21:41 22:11 Pulse 72 66 B/P (MAP) 161/85 (110) 167/88 (114) 164/86 (112) 154/78 (103) 12/01/16 12/01/16 12/01/16 12/01/16 22:41 23:05 23:41 23:53 Temp 98.0 98.0 Pulse 73 73 Resp 18 B/P (MAP) 164/87 (112) 164/87 (112) 169/87 (114) 169/87 Pulse Ox 96 O2 Delivery Room Air 12/02/16 12/02/16 12/02/16 12/02/16 00:41 01:41 02:40 04:13 Temp 97.8 97.8 Pulse 81 Resp 18 B/P (MAP) 178/74 (108) 157/89 (111) 148/81 (103) 162/81 (108) Pulse Ox 98 O2 Delivery Room Air 12/02/16 12/02/16 12/02/16 12/02/16 04:18 07:00 07:47 08:45 Temp 98.3 98.3 Pulse 81 89 93 Resp 18 B/P (MAP) 162/81 153/93 (113) 153/93 Pulse Ox 96 O2 Delivery Room Air Room Air 12/02/16 12/02/16 12/02/16 12/02/16 08:46 08:46 08:47 11:00 Temp 98.9 98.9 Pulse 93 93 93 86 Resp 18 B/P (MAP) 153/93 153/93 153/93 116/74 (88) Pulse Ox 96 O2 Delivery Room Air 12/02/16 11:02 Pulse 87 B/P (MAP) 116/74 Intake and Output 12/01/16 12/01/16 12/02/16 15:00 23:00 07:00 Intake Total 556.33 ml 360 ml Output Total 325 ml 900 ml Balance 231.33 ml -540 ml MONICA PATIÑO MD December 02, 2016 12:54
[2016-12-02] MEDS ORDERED: CARV12.52 PO (16:33)
[2016-12-02] MEDS ORDERED: HYDR-2868 PO (16:33)
[2016-12-02] MEDS ORDERED: LISI10TA2 PO (16:33)
[2016-12-02] MEDS ORDERED: ISOS30TA4 PO (16:33)
[2016-12-02] MEDS ORDERED: FURO40TA4 PO (16:33)
--- NOTE | 2016-12-02 17:51 | CARD ---
APPROVED REPORT EXAM: Two-dimensional and M-mode echocardiogram with Doppler and color Doppler. Other Information Quality : GoodHR: 77bpm Rhythm : NSR INDICATION SOA,CP,HTN 2D DIMENSIONS Left Atrium(2D)4.0 (1.6-4.0cm)IVSd1.2 (0.7-1.1cm) Aortic Root(2D)3.3 (2.0-3.7cm)LVDd6.4 (3.9-5.9cm) PWd1.2 (0.7-1.1cm)LVDs4.6 (2.5-4.0cm) FS (%) 27.8 %SV111.3 ml LVEF(%)52.8 (>50%) Aortic Valve AoV Peak Harjit.169.8cm/sAoV VTI29.9cm AO Peak GR.11.5mmHgLVOT Peak Harjit.112.0cm/s AO Mean GR.6mmHgAI P 1/2 [id number] Mitral Valve MV E Yssfenip17.2cm/sMV E Peak Gr.8mmHg MV DECEL [id number] A Mjiqccqr512.0cm/s MV E Mean Gr.2mmHgE/A Ratio0.4 MV A [id number] Pulmonary Vein S1 Eiooorkq80.3cm/sD2 Ezorpkzn06.3cm/s PVa [id number] LEFT VENTRICLE The left ventricle is normal size. There is mild concentric left ventricular hypertrophy. Left ventri sima systolic function is mildly impaired. The Ejection Fraction is 40-45%. There is mild global hypok inesis of the left ventricle. Transmitral Doppler flow pattern is Grade I-abnormal relaxation pattern . There is no ventricular septal defect visualized. RIGHT VENTRICLE The right ventricle is normal size. There is normal right ventricular wall thickness. The right ventr icular systolic function is normal. ATRIA The left atrium is severely dilated. The right atrium size is normal. The interatrial septum is intac t with no evidence for an atrial septal defect or patent foramen ovale as noted on 2-D or Doppler bakari ging. The atrial septum is aneurysmal. AORTIC VALVE The aortic valve is mildly sclerotic. The aortic valve is trileaflet. Doppler and Color Flow revealed mild aortic regurgitation. There is no significant aortic valvular stenosis. MITRAL VALVE The mitral valve is normal in structure and function. There is no evidence of mitral valve prolapse. There is no mitral valve stenosis. TRICUSPID VALVE Doppler and Color Flow revealed no tricuspid valve regurgitation noted. There is no pulmonary hyperte nsion. PULMONIC VALVE Doppler and Color Flow revealed no pulmonic valvular regurgitation. There is no pulmonic valvular maite nosis. GREAT VESSELS The aortic root is normal in size. The ascending aorta is normal in size. The IVC is normal in size a nd collapses >50% with inspiration. PERICARDIAL EFFUSION There is no evidence of significant pericardial effusion. Critical Notification Critical Value: No <Conclusion> Left ventricle systolic function is mildly impaired. The Ejection Fraction is 40-45%. There is mild global hypokinesis of the left ventricle. Transmitral Doppler flow pattern is Grade I-abnormal relaxation pattern. There is mild concentric left ventricular hypertrophy. The interatrial septum is intact with no evidence for an atrial septal defect or patent foramen ovale as noted on 2-D or Doppler imaging. The atrial septum is aneurysmal. Doppler and Color Flow revealed mild aortic regurgitation.
[2016-12-02] MEDS ORDERED: LISINOPRIL 20 MG TABLET PO ONE (18:00)
[2016-12-03 03:00] VITALS: BP 149/86
[2016-12-03 07:25] VITALS: BP 166/85
[2016-12-03] MEDS: ISOSORBIDE MONONITRATE ER 30 MG TAB.ER.24H PO SCH (08:47)
[2016-12-03] MEDS: FUROSEMIDE 40 MG TABLET. PO SCH (08:47)
[2016-12-03] MEDS: CARVEDILOL 12.5 MG TABLET. PO SCH (08:48)
[2016-12-03] MEDS: hydrALAZINE 25 MG TABLET PO SCH (08:48)
[2016-12-03] MEDS ORDERED: LISINOPRIL 20 MG TABLET PO SCH (09:00)
[2016-12-03 11:12] VITALS: BP 150/90
--- NOTE | 2016-12-03 13:34 | PDOC ---
PROGRESS NOTES Chief Complaint Chief Complaint Chest pain Malignant HTN NSTEMI type 2 Non-ischemic cardiomyopathy History of Present Illness History of Present Illness no chest pain no fever doing better. Vitals Vitals Vital Signs Date Time Temp Pulse Resp B/P (MAP) Pulse Ox O2 Delivery O2 Flow Rate FiO2 12/03/16 11:12 98.5 73 14 150/90 (110) 95 Room Air 98.5 Physical Exam General: Alert, Oriented X3, Cooperative, No acute distress Heart: Regular rate, Normal S1, Normal S2 Lungs: Clear Abdomen: Soft, No tenderness Extremities: No edema, Normal pulses Skin: No significant lesion Assessment and Plan Assessmemt and Plan Problems Medical Problems: (1) Elevated troponin Status: Acute (2) HTN (hypertension) Status: Acute Chest pain Malignant HTN NSTEMI type 2 Non-ischemic cardiomyopathy Plan: -Cardiology managing BP meds -Echo results show EF 40-45% and mild LVH and LV hypokinesis- plan pending Cardio -Continue current management -Monitor blood pressure -Recheck am labs -PT/OT as appropriate -Subspecialty input appreciated -Discharge disposition pending Problems: Comment Review of Relevant I have reviewed the following items amanda (where applicable) has been applied. Labs Laboratory Tests Test 12/01/16 15:10 12/01/16 17:55 12/01/16 23:05 12/02/16 02:25 Urine Opiates Screen Neg (NEG) Urine Methadone Screen Neg (NEG) Urine Barbiturates Neg (NEG) Urine Phencyclidine Screen Neg (NEG) Urine Amphetamine/Methamphetamine Neg (NEG) Urine Benzodiazepines Screen Neg (NEG) Urine Cocaine Screen Neg (NEG) Urine Cannabinoids Screen Neg (NEG) Urine Ethyl Alcohol Neg (NEG) Troponin I Quantitative 0.554 ng/mL (0.000-0.055) 0.521 ng/mL (0.000-0.055) White Blood Count 8.0 x10^3/uL (4.0-11.0) Red Blood Count 4.98 x10^6/uL (4.30-5.70) Hemoglobin 12.6 g/dL (13.0-17.5) Hematocrit 39.8 % (39.0-53.0) Mean Corpuscular Volume 80 fL (79-100) Mean Corpuscular Hemoglobin 25 pg (25-35) Mean Corpuscular Hemoglobin Concent 32 g/dL (31-37) Red Cell Distribution Width 19.1 % (11.5-14.5) Platelet Count 315 x10^3/uL (140-400) Neutrophils (%) (Auto) 54 % (31-73) Lymphocytes (%) (Auto) 33 % (24-48) Monocytes (%) (Auto) 9 % (0-9) Eosinophils (%) (Auto) 3 % (0-3) Basophils (%) (Auto) 1 % (0-3) Neutrophils # (Auto) 4.3 x10^3uL (1.8-7.7) Lymphocytes # (Auto) 2.6 x10^3/uL (1.0-4.8) Monocytes # (Auto) 0.7 x10^3/uL (0.0-1.1) Eosinophils # (Auto) 0.2 x10^3/uL (0.0-0.7) Basophils # (Auto) 0.1 x10^3/uL (0.0-0.2) Sodium Level 139 mmol/L (136-145) Potassium Level 3.7 mmol/L (3.5-5.1) Chloride Level 102 mmol/L (98-107) Carbon Dioxide Level 27 mmol/L (21-32) Anion Gap 10 (6-14) Blood Urea Nitrogen 18 mg/dL (8-26) Creatinine 1.2 mg/dL (0.7-1.3) Estimated GFR (Cockcroft-Gault) 75.8 Glucose Level 114 mg/dL (70-99) Calcium Level 8.8 mg/dL (8.5-10.1) Triglycerides Level 124 mg/dL (0-150) Cholesterol Level 177 mg/dL (0-200) LDL Cholesterol, Calculated 119 mg/dL (0-100) VLDL Cholesterol, Calculated 25 mg/dL (0-40) Non-HDL Cholesterol Calculated 144 mg/dL (0-129) HDL Cholesterol 33 mg/dL (40-60) Cholesterol/HDL Ratio 5.4 Medications Current Medications Aspirin (Children'S Aspirin) 324 mg 1X ONCE PO Last administered on 12/01/16t 10:24; Start 12/01/16 at 10:15; Stop 12/01/16 at 10:16; Status DC Nitroglycerin (Nitrostat) 0.4 mg PRN Q5MIN PRN SL CHEST PAIN Last administered on 12/01/16 11:12; Start 12/01/16 at 10:30 Hydralazine HCl (Apresoline) 10 mg 1X ONCE IVP Last administered on 12/01/16 11:33; Start 12/01/16 at 11:15; Stop 12/01/16 at 11:24; Status DC Isosorbide Mononitrate (Imdur) 30 mg DAILY PO Last administered on 12/03/16 08 :47; Start 12/01/16 at 12:45 Lisinopril (Prinivil) 10 mg DAILY PO Last administered on 12/02/16 08:46; Start 12/01/16 at 12:45; Stop 12/02/16 at 10:47; Status DC Carvedilol (Coreg) 12.5 mg BIDWMEALS PO Last administered on 12/03/16 08:48; Start 12/01/16 at 12:45 Hydralazine HCl (Apresoline) 10 mg PRN Q4HRS PRN IVP ELEVATED BP, SEE COMMENTS Last administered on 12/02/16 04:18; Start 12/01/16 at 12:45 Nicardipine HCl 50 mg/Sodium Chloride 270 ml @ 25 mls/hr CONT PRN IV SEE I/O RECORD Last administered on 12/01/16 13:38; Start 12/01/16 at 14:00 Furosemide (Lasix) 40 mg BID92 PO Last administered on 12/03/16 08:47; Start 12/02/16 at 09:00 Hydralazine HCl (Apresoline) 50 mg BID PO Last administered on 12/03/16 08:48 ; Start 12/01/16 at 21:00 Lisinopril (Prinivil) 10 mg 1X ONCE PO Last administered on 12/02/16 11:02; Start 12/02/16 at 10:45; Stop 12/02/16 at 10:48; Status DC Lisinopril (Prinivil) 20 mg DAILY PO Last administered on 12/03/16 08:47; Start 12/03/16 at 09:00 Lisinopril (Prinivil) 20 mg 1X ONCE PO Last administered on 12/02/16 18:03; Start 12/02/16 at 18:00; Stop 12/02/16 at 18:01; Status DC Active Scripts Active Lisinopril 10 Mg Tablet 2 Tab PO DAILY 30 Days Carvedilol 12.5 Mg Tablet 1 Tab PO BID Hydralazine Hcl 25 Mg Tablet 50 Mg PO BID Isosorbide Mononitrate Er (Isosorbide Mononitrate) 30 Mg Tab.er.24h 30 Mg PO DAILY Furosemide 40 Mg Tablet 40 Mg PO BID92 Pantoprazole Sodium 40 Mg Tablet.dr 40 Mg PO DAILYAC Vitals/I & O Vital Sign - Last 24 Hours 12/02/16 12/02/16 12/02/16 12/02/16 15:00 17:40 18:03 19:30 Temp 98.7 98.7 Pulse 75 81 94 Resp 18 B/P (MAP) 153/70 (97) 176/100 169/91 Pulse Ox 95 O2 Delivery Room Air Room Air 12/02/16 12/02/16 12/02/16 12/03/16 19:47 20:43 23:05 03:00 Temp 98.6 97.5 97.4 98.6 97.5 97.4 Pulse 82 82 87 88 Resp 15 20 18 B/P (MAP) 155/88 (110) 155/88 151/93 (112) 149/86 (107) Pulse Ox 94 94 94 O2 Delivery Room Air Room Air Room Air 12/03/16 12/03/16 12/03/16 12/03/16 07:25 08:00 08:47 08:47 Temp 98.1 98.1 Pulse 68 89 Resp 14 B/P (MAP) 166/85 (112) 166/85 Pulse Ox 95 O2 Delivery Room Air Room Air 12/03/16 12/03/16 12/03/16 08:48 08:48 11:12 Temp 98.5 98.5 Pulse 72 73 Resp 14 B/P (MAP) 166/85 150/90 (110) Pulse Ox 95 O2 Delivery Room Air Intake and Output 12/02/16 12/02/16 12/03/16 15:00 23:00 07:00 Intake Total 220 ml 60 ml Output Total 250 ml 500 ml Balance -30 ml -440 ml VISHAL RAY III DO December 03, 2016 13:34
== END 2016-12-03 13:54 | disposition home or self-care (01) | DRG 281 ==
LOC: ER 08:50 → 2 NORTH 10:16
PROVIDERS: ADMIT Internal Medicine; ATTEND Internal Medicine
DX: I21.4 Non-ST elevation (NSTEMI) myocardial infarction (principal); I13.0 Hypertensive heart and chronic kidney disease with heart failure and stage 1 through stage 4 chronic kidney disease, or unspecified chronic kidney disease; I42.8 Other cardiomyopathies; I50.9 Heart failure, unspecified; F17.210 Nicotine dependence, cigarettes, uncomplicated; E78.5 Hyperlipidemia, unspecified; Z82.49 Family history of ischemic heart disease and other diseases of the circulatory system; Z83.3 Family history of diabetes mellitus; Z79.82 Long term (current) use of aspirin; Z79.899 Other long term (current) drug therapy; Z71.6 Tobacco abuse counseling; N18.2 Chronic kidney disease, stage 2 (mild); I16.0 Hypertensive urgency
CPT/HCPCS: 36415; 71010; 80048; 80053; 80061; 84484; 85027; 93005; 93306; 96374; G0481; J0360; J7050; 99285-25; J7030

== ENCOUNTER 2017-10-31 08:19 | Inpatient (IN) | payer OTHER ==
[2017-10-31] MEDS: IOHEXOL 300 MG/ML 100ML VIAL. IV (08:45)
[2017-10-31 08:49] LABS: ADD MAN DIFF? NO
[2017-10-31 08:55] LABS: BASO # 0.1 x10^3/uL (0.0-0.2); BASO % 1 % (0-3); EOS # 0.1 x10^3/uL (0.0-0.7); EOS % 1 % (0-3); HEMATOCRIT 50.4 % (39.0-53.0); HEMOGLOBIN 16.5 g/dL (13.0-17.5); LYMPH # 2.9 x10^3/uL (1.0-4.8); LYMPH % 25 % (24-48); MEAN CORPUSCULAR HEMOGLOBIN 26 pg (25-35); MEAN CORPUSCULAR HGB CONC 33 g/dL (31-37); MEAN CORPUSCULAR VOLUME 80 fL (79-100); MONO # 0.6 x10^3/uL (0.0-1.1); MONO % 5 % (0-9); NEUT # 8.1 x10^3uL (1.8-7.7); NEUT % 69 % (31-73); PLATELET COUNT 319 x10^3/uL (140-400); RED BLOOD COUNT 6.34 x10^6/uL (4.30-5.70); RED CELL DISTRIBUTION WIDTH 17.5 % (11.5-14.5); WHITE BLOOD COUNT 11.7 x10^3/uL (4.0-11.0)
[2017-10-31] MEDS ORDERED: CONTRAST GIVEN MC (09:00)
[2017-10-31] MEDS: ONDANSETRON PF 4 MG/2 ML VIAL. IV (09:01)
[2017-10-31] MEDS: MORPHINE SULFATE 4 MG/ML DISP.SYRIN. IV (09:03)
[2017-10-31] MEDS: LABETALOL 20 MG/4 ML DISP.SYRIN. IVP (09:07)
[2017-10-31 09:50] LABS: ANION GAP 21 (6-14); BLOOD UREA NITROGEN 56 mg/dL (8-26); BUN/CREATININE RATIO 23 (6-20); CALCIUM 9.9 mg/dL (8.5-10.1); CARBON DIOXIDE 17 mmol/L (21-32); CHLORIDE 87 mmol/L (98-107); CREATININE 2.4 mg/dL (0.7-1.3); GFR 33.9; POTASSIUM 5.5 mmol/L (3.5-5.1); SODIUM 125 mmol/L (136-145)
[2017-10-31 09:53] LABS: ALBUMIN 3.6 g/dL (3.4-5.0); ALBUMIN/GLOBULIN RATIO 0.7 (1.0-1.7); ALK PHOS 142 U/L (46-116); ALT (SGPT) 20 U/L (16-63); AST (SGOT) 12 U/L (15-37); TOTAL BILIRUBIN 1.3 mg/dL (0.2-1.0); TOTAL PROTEIN 8.7 g/dL (6.4-8.2)
[2017-10-31 10:02] LABS: TROPONINI 0.444 ng/mL (0.000-0.055)
[2017-10-31 10:16] LABS: GLUCOSE 721 mg/dL (70-99)
[2017-10-31 10:18] LABS: BILIRUBIN,URINE NEGATIVE (NEG); CLARITY,URINE CLEAR; COLOR,URINE YELLOW; GLUCOSE,URINE >=1000 mg/dL (NEG); NITRITE,URINE NEGATIVE (NEG); PROTEIN,URINE NEGATIVE (NEG-TRACE); UROBILINOGEN,URINE 0.2 mg/dL (0.2 mg/dL)
[2017-10-31 10:22] LABS: SQUAMOUS EPITHELIAL CELL,UR FEW /LPF
[2017-10-31 10:24] LABS: BACTERIA,URINE FEW /HPF (0-FEW)
[2017-10-31 10:26] LABS: TRICHOMONAS,URINE PRESENT
[2017-10-31] MEDS: IV NORMAL SALINE 1000ML BAG 1,000 ML IV ×2 (10:26→18:56)
[2017-10-31] MEDS: ASPIRIN 325 MG TABLET PO (10:29)
[2017-10-31] MEDS ORDERED: INSULIN REGULAR VIAL 150 UNIT in 0.9 % SODIUM CHLORIDE 150ML 150 ML IV (10:30)
[2017-10-31 10:58] LABS: BASE EXCESS ABG -9 mmol/L (-3-3); FIO2 ABG 21; HCO3 ABG 18 mmol/L (21-28); PCO2 ABG 40 mmHg (35-46); PH ABG 7.27 (7.35-7.45); PO2 ABG 68 mmHg (75-108); SAT O2 ABG 91 % (92-99)
[2017-10-31] MEDS ORDERED: ACETAMINOPHEN 325 MG TABLET. PO (11:15)
[2017-10-31] MEDS ORDERED: MORPHINE SULFATE 4 MG/ML DISP.SYRIN. IV (11:15)
[2017-10-31] MEDS ORDERED: ONDANSETRON PF 4 MG/2 ML VIAL. IV ×2 (11:15→11:30)
[2017-10-31] MEDS ORDERED: ACETAMINOPHEN 500 MG TABLET PO (11:30)
[2017-10-31] MEDS ORDERED: ONDANSETRON ODT 4 MG TAB.RAPDIS. PO (11:30)
[2017-10-31] MEDS: metroNIDAZOLE 500 MG TABLET PO (11:43)
[2017-10-31] MEDS: AZITHROMYCIN 250 MG TABLET. PO (11:45)
[2017-10-31] MEDS: cefTRIAXone IM 250 MG VIAL IM (11:47)
[2017-10-31] MEDS: INSULIN,REGULAR 150 UNIT DRIP 150 ML IV (11:57)
[2017-10-31] MEDS: ISOSORBIDE MONONITRATE ER 30 MG TAB.ER.24H PO (12:00)
[2017-10-31 13:50] LABS: POC GLUCOSE 555 mg/dL (70-99)
[2017-10-31] MEDS: PANTOPRAZOLE 40 MG TABLET.DR. PO (16:12)
[2017-10-31] MEDS: LISINOPRIL 20 MG TABLET PO (16:12)
[2017-10-31] MEDS: FUROSEMIDE 40 MG TABLET. PO (16:12)
[2017-10-31] MEDS: CARVEDILOL 12.5 MG TABLET. PO (16:13)
[2017-10-31 16:17] LABS: POC GLUCOSE 369 mg/dL (70-99)
[2017-10-31] MEDS ORDERED: DOPamine 400MG/250ML PREMIX 400 MG/250 ML BAG IV (17:00)
[2017-10-31 17:16] LABS: MAGNESIUM 2.5 mg/dL (1.8-2.4)
[2017-10-31 17:24] LABS: TROPONINI 0.538 ng/mL (0.000-0.055)
[2017-10-31 17:26] LABS: LACTIC ACID 1.5 mmol/L (0.4-2.0)
[2017-10-31] MEDS: GLUCAGON,HUMAN RECOMBINANT 1 MG/ML VIAL. IM (17:30)
[2017-10-31 17:42] LABS: POC GLUCOSE 418 mg/dL (70-99)
[2017-10-31 19:03] LABS: POC GLUCOSE 489 mg/dL (70-99)
[2017-10-31 20:02] LABS: POC GLUCOSE 444 mg/dL (70-99)
[2017-10-31 20:22] LABS: HEMATOCRIT 42.2 % (39.0-53.0); HEMOGLOBIN 13.9 g/dL (13.0-17.5); MEAN CORPUSCULAR HEMOGLOBIN 26 pg (25-35); MEAN CORPUSCULAR HGB CONC 33 g/dL (31-37); MEAN CORPUSCULAR VOLUME 78 fL (79-100); PLATELET COUNT 243 x10^3/uL (140-400); RED CELL DISTRIBUTION WIDTH 17.3 % (11.5-14.5); WHITE BLOOD COUNT 10.7 x10^3/uL (4.0-11.0)
[2017-10-31 20:40] LABS: ALBUMIN 2.8 g/dL (3.4-5.0); ALBUMIN/GLOBULIN RATIO 0.7 (1.0-1.7); ALK PHOS 104 U/L (46-116); ALT (SGPT) 18 U/L (16-63); ANION GAP 13 (6-14); AST (SGOT) 12 U/L (15-37); BLOOD UREA NITROGEN 54 mg/dL (8-26); BUN/CREATININE RATIO 22 (6-20); CALCIUM 7.9 mg/dL (8.5-10.1); CARBON DIOXIDE 22 mmol/L (21-32); CHLORIDE 98 mmol/L (98-107); CREATININE 2.5 mg/dL (0.7-1.3); GFR 32.4; GLUCOSE 447 mg/dL (70-99); MAGNESIUM 2.2 mg/dL (1.8-2.4); POTASSIUM 3.5 mmol/L (3.5-5.1); SODIUM 133 mmol/L (136-145); TOTAL BILIRUBIN 0.7 mg/dL (0.2-1.0); TOTAL PROTEIN 6.9 g/dL (6.4-8.2)
[2017-10-31 20:43] LABS: TROPONINI 0.643 ng/mL (0.000-0.055)
[2017-10-31 21:07] LABS: POC GLUCOSE 361 mg/dL (70-99)
[2017-10-31 22:14] LABS: POC GLUCOSE 280 mg/dL (70-99)
[2017-10-31] MEDS: INSULIN REGULAR VIAL 150 UNIT in 0.9 % SODIUM CHLORIDE 150ML 150 ML IV (22:42)
[2017-10-31 23:12] LABS: POC GLUCOSE 257 mg/dL (70-99)
[2017-11-01 00:16] LABS: POC GLUCOSE 198 mg/dL (70-99)
[2017-11-01 01:18] LABS: POC GLUCOSE 149 mg/dL (70-99)
[2017-11-01 02:22] LABS: POC GLUCOSE 114 mg/dL (70-99)
[2017-11-01 04:13] LABS: POC GLUCOSE 157 mg/dL (70-99)
[2017-11-01 04:13] LABS: POC GLUCOSE 181 mg/dL (70-99)
[2017-11-01] MEDS: IV NORMAL SALINE 1000ML BAG 1,000 ML IV ×4 (04:33→20:45)
[2017-11-01 05:04] LABS: ADD MAN DIFF? NO
[2017-11-01 05:10] LABS: POC GLUCOSE 163 mg/dL (70-99)
[2017-11-01 05:12] LABS: BASO # 0.1 x10^3/uL (0.0-0.2); BASO % 1 % (0-3); EOS # 0.1 x10^3/uL (0.0-0.7); EOS % 1 % (0-3); HEMATOCRIT 41.6 % (39.0-53.0); HEMOGLOBIN 13.7 g/dL (13.0-17.5); LYMPH # 2.3 x10^3/uL (1.0-4.8); LYMPH % 21 % (24-48); MEAN CORPUSCULAR HEMOGLOBIN 25 pg (25-35); MEAN CORPUSCULAR HGB CONC 33 g/dL (31-37); MEAN CORPUSCULAR VOLUME 77 fL (79-100); MONO # 0.7 x10^3/uL (0.0-1.1); MONO % 7 % (0-9); NEUT # 7.5 x10^3uL (1.8-7.7); NEUT % 70 % (31-73); PLATELET COUNT 271 x10^3/uL (140-400); RED BLOOD COUNT 5.41 x10^6/uL (4.30-5.70); RED CELL DISTRIBUTION WIDTH 17.1 % (11.5-14.5); WHITE BLOOD COUNT 10.7 x10^3/uL (4.0-11.0)
[2017-11-01 05:46] LABS: ALBUMIN 2.7 g/dL (3.4-5.0); ALBUMIN/GLOBULIN RATIO 0.7 (1.0-1.7); ALK PHOS 100 U/L (46-116); ALT (SGPT) 17 U/L (16-63); ANION GAP 7 (6-14); BLOOD UREA NITROGEN 46 mg/dL (8-26); BUN/CREATININE RATIO 24 (6-20); CALCIUM 8.5 mg/dL (8.5-10.1); CARBON DIOXIDE 27 mmol/L (21-32); CHLORIDE 103 mmol/L (98-107); CREATININE 1.9 mg/dL (0.7-1.3); GFR 44.4; GLUCOSE 181 mg/dL (70-99); POTASSIUM 3.1 mmol/L (3.5-5.1); SODIUM 137 mmol/L (136-145); TOTAL BILIRUBIN 0.7 mg/dL (0.2-1.0); TOTAL PROTEIN 6.7 g/dL (6.4-8.2)
[2017-11-01 05:56] LABS: AST (SGOT) 14 U/L (15-37)
[2017-11-01 06:17] LABS: POC GLUCOSE 110 mg/dL (70-99)
[2017-11-01] MEDS: CARVEDILOL 12.5 MG TABLET. PO ×2 (08:00→17:00)
[2017-11-01 08:18] LABS: POC GLUCOSE 158 mg/dL (70-99)
[2017-11-01 09:08] LABS: POC GLUCOSE 110 mg/dL (70-99)
[2017-11-01] MEDS: FUROSEMIDE 40 MG TABLET. PO ×2 (09:23→15:40)
[2017-11-01] MEDS: PANTOPRAZOLE 40 MG TABLET.DR. PO (09:23)
[2017-11-01] MEDS: cefTRIAXone IV Push 1 GM VIAL. IVP (09:27)
[2017-11-01] MEDS: INSULIN LISPRO 300 UNITS/3 ML INSULN.PEN. SQ ×4 (10:06→21:14)
[2017-11-01 10:52] LABS: MAGNESIUM 2.1 mg/dL (1.8-2.4)
[2017-11-01] MEDS: POTASSIUM CHLORIDE 20 MEQ TABLET.ER. PO (11:28)
[2017-11-01 12:15] LABS: POC GLUCOSE 82 mg/dL (70-99)
[2017-11-01 12:15] LABS: POC GLUCOSE 158 mg/dL (70-99)
[2017-11-01 17:46] LABS: POC GLUCOSE 287 mg/dL (70-99)
[2017-11-01] MEDS: LISINOPRIL 20 MG TABLET PO (17:50)
[2017-11-01] MEDS: ISOSORBIDE MONONITRATE ER 30 MG TAB.ER.24H PO (17:50)
[2017-11-01] MEDS: LACTOBACILLUS RHAMNOSUS GG 1 CAPSULE. PO (20:44)
[2017-11-01] MEDS: INSULIN GLARGINE 300 UNITS/3 ML INSULN.PEN. SQ (20:46)
[2017-11-01 20:51] LABS: POC GLUCOSE 401 mg/dL (70-99)
[2017-11-01] MEDS ORDERED: DEXTROSE 50% 25 GM / 50ML DISP.SYRIN. IV (21:00)
[2017-11-01] MEDS ORDERED: INSULIN LISPRO 300 UNITS/3 ML INSULN.PEN. SQ (21:05)
[2017-11-02 04:40] LABS: ADD MAN DIFF? NO
[2017-11-02 04:46] LABS: BASO # 0.1 x10^3/uL (0.0-0.2); BASO % 1 % (0-3); EOS # 0.1 x10^3/uL (0.0-0.7); EOS % 1 % (0-3); HEMATOCRIT 40.9 % (39.0-53.0); HEMOGLOBIN 13.5 g/dL (13.0-17.5); LYMPH # 2.6 x10^3/uL (1.0-4.8); LYMPH % 32 % (24-48); MEAN CORPUSCULAR HEMOGLOBIN 26 pg (25-35); MEAN CORPUSCULAR HGB CONC 33 g/dL (31-37); MEAN CORPUSCULAR VOLUME 78 fL (79-100); MONO # 0.7 x10^3/uL (0.0-1.1); MONO % 9 % (0-9); NEUT # 4.7 x10^3uL (1.8-7.7); NEUT % 57 % (31-73); PLATELET COUNT 240 x10^3/uL (140-400); RED BLOOD COUNT 5.27 x10^6/uL (4.30-5.70); RED CELL DISTRIBUTION WIDTH 17.1 % (11.5-14.5); WHITE BLOOD COUNT 8.2 x10^3/uL (4.0-11.0)
[2017-11-02 05:14] LABS: ANION GAP 6 (6-14); CALCIUM 8.4 mg/dL (8.5-10.1); CARBON DIOXIDE 26 mmol/L (21-32); CHLORIDE 107 mmol/L (98-107); CREATININE 1.4 mg/dL (0.7-1.3); GFR 63.2; GLUCOSE 270 mg/dL (70-99); POTASSIUM 3.7 mmol/L (3.5-5.1); SODIUM 139 mmol/L (136-145)
[2017-11-02 05:17] LABS: BLOOD UREA NITROGEN 26 mg/dL (8-26)
[2017-11-02] MEDS: IV NORMAL SALINE 1000ML BAG 1,000 ML IV ×3 (06:08→21:45)
[2017-11-02 08:11] LABS: POC GLUCOSE 260 mg/dL (70-99)
[2017-11-02] MEDS: FUROSEMIDE 40 MG TABLET. PO ×2 (08:26→15:19)
[2017-11-02] MEDS: POTASSIUM CHLORIDE 20 MEQ TABLET.ER. PO (08:27)
[2017-11-02] MEDS: LACTOBACILLUS RHAMNOSUS GG 1 CAPSULE. PO ×2 (08:27→21:03)
[2017-11-02] MEDS: PANTOPRAZOLE 40 MG TABLET.DR. PO (08:27)
[2017-11-02] MEDS: ISOSORBIDE MONONITRATE ER 30 MG TAB.ER.24H PO (08:28)
[2017-11-02] MEDS: cefTRIAXone IV Push 1 GM VIAL. IVP (08:29)
[2017-11-02] MEDS: LISINOPRIL 20 MG TABLET PO (08:29)
[2017-11-02] MEDS: INSULIN LISPRO 300 UNITS/3 ML INSULN.PEN. SQ ×7 (08:44→21:07)
[2017-11-02] MEDS ORDERED: EPINEPHrine SYRINGE 1 MG/10 ML SYRINGE (09:00)
[2017-11-02 12:35] LABS: POC GLUCOSE 256 mg/dL (70-99)
[2017-11-02 17:53] LABS: POC GLUCOSE 214 mg/dL (70-99)
[2017-11-02 20:53] LABS: POC GLUCOSE 258 mg/dL (70-99)
[2017-11-02] MEDS: INSULIN GLARGINE 300 UNITS/3 ML INSULN.PEN. SQ (21:08)
[2017-11-02 23:13] LABS: MRSA BY PCR Positive (Negative)
[2017-11-03 04:20] LABS: HEMOGLOBIN A1C 12.8 % (4.8-5.6)
[2017-11-03] MEDS: IV NORMAL SALINE 1000ML BAG 1,000 ML IV ×3 (05:39→21:45)
[2017-11-03 06:35] LABS: ADD MAN DIFF? NO
[2017-11-03 06:42] LABS: BASO % 1 % (0-3); EOS # 0.1 x10^3/uL (0.0-0.7); EOS % 2 % (0-3); HEMATOCRIT 39.1 % (39.0-53.0); HEMOGLOBIN 12.8 g/dL (13.0-17.5); LYMPH # 2.5 x10^3/uL (1.0-4.8); LYMPH % 40 % (24-48); MEAN CORPUSCULAR HEMOGLOBIN 26 pg (25-35); MEAN CORPUSCULAR HGB CONC 33 g/dL (31-37); MEAN CORPUSCULAR VOLUME 78 fL (79-100); MONO # 0.6 x10^3/uL (0.0-1.1); MONO % 10 % (0-9); NEUT % 47 % (31-73); PLATELET COUNT 215 x10^3/uL (140-400); RED BLOOD COUNT 4.99 x10^6/uL (4.30-5.70); RED CELL DISTRIBUTION WIDTH 17.5 % (11.5-14.5); WHITE BLOOD COUNT 6.3 x10^3/uL (4.0-11.0)
[2017-11-03 07:20] LABS: ANION GAP 11 (6-14); CALCIUM 8.1 mg/dL (8.5-10.1); CARBON DIOXIDE 24 mmol/L (21-32); CHLORIDE 106 mmol/L (98-107); CREATININE 1.2 mg/dL (0.7-1.3); GFR 75.5; GLUCOSE 282 mg/dL (70-99); POTASSIUM 3.5 mmol/L (3.5-5.1); SODIUM 141 mmol/L (136-145)
[2017-11-03 07:31] LABS: BLOOD UREA NITROGEN 13 mg/dL (8-26)
[2017-11-03] MEDS: LACTOBACILLUS RHAMNOSUS GG 1 CAPSULE. PO ×2 (08:12→20:43)
[2017-11-03] MEDS: PANTOPRAZOLE 40 MG TABLET.DR. PO (08:12)
[2017-11-03] MEDS: POTASSIUM CHLORIDE 20 MEQ TABLET.ER. PO (08:12)
[2017-11-03] MEDS: FUROSEMIDE 40 MG TABLET. PO ×2 (08:12→15:02)
[2017-11-03] MEDS: LISINOPRIL 20 MG TABLET PO (08:16)
[2017-11-03] MEDS: ISOSORBIDE MONONITRATE ER 30 MG TAB.ER.24H PO (08:17)
[2017-11-03] MEDS: cefTRIAXone IV Push 1 GM VIAL. IVP (08:17)
[2017-11-03] MEDS: INSULIN LISPRO 300 UNITS/3 ML INSULN.PEN. SQ ×8 (08:25→20:53)
[2017-11-03 08:45] LABS: POC GLUCOSE 271 mg/dL (70-99)
[2017-11-03 11:33] LABS: POC GLUCOSE 371 mg/dL (70-99)
[2017-11-03 16:45] LABS: POC GLUCOSE 194 mg/dL (70-99)
[2017-11-03] MEDS: INSULIN GLARGINE 300 UNITS/3 ML INSULN.PEN. SQ (20:52)
[2017-11-03 21:01] LABS: POC GLUCOSE 241 mg/dL (70-99)
[2017-11-04 05:35] LABS: ADD MAN DIFF? NO
[2017-11-04] MEDS: IV NORMAL SALINE 1000ML BAG 1,000 ML IV ×2 (05:45→13:45)
[2017-11-04 05:51] LABS: ANION GAP 8 (6-14); BLOOD UREA NITROGEN 11 mg/dL (8-26); CALCIUM 8.7 mg/dL (8.5-10.1); CARBON DIOXIDE 28 mmol/L (21-32); CHLORIDE 104 mmol/L (98-107); CREATININE 1.2 mg/dL (0.7-1.3); GFR 75.5; GLUCOSE 323 mg/dL (70-99); POTASSIUM 3.5 mmol/L (3.5-5.1); SODIUM 140 mmol/L (136-145)
[2017-11-04 06:11] LABS: BASO # 0.1 x10^3/uL (0.0-0.2); BASO % 1 % (0-3); EOS # 0.1 x10^3/uL (0.0-0.7); EOS % 1 % (0-3); HEMOGLOBIN 12.4 g/dL (13.0-17.5); LYMPH # 2.4 x10^3/uL (1.0-4.8); LYMPH % 38 % (24-48); MEAN CORPUSCULAR HEMOGLOBIN 25 pg (25-35); MEAN CORPUSCULAR HGB CONC 33 g/dL (31-37); MEAN CORPUSCULAR VOLUME 78 fL (79-100); MONO # 0.7 x10^3/uL (0.0-1.1); MONO % 10 % (0-9); NEUT # 3.3 x10^3uL (1.8-7.7); NEUT % 50 % (31-73); PLATELET COUNT 217 x10^3/uL (140-400); RED CELL DISTRIBUTION WIDTH 17.4 % (11.5-14.5); WHITE BLOOD COUNT 6.5 x10^3/uL (4.0-11.0)
[2017-11-04 07:41] LABS: POC GLUCOSE 328 mg/dL (70-99)
[2017-11-04] MEDS: POTASSIUM CHLORIDE 20 MEQ TABLET.ER. PO (08:38)
[2017-11-04] MEDS: PANTOPRAZOLE 40 MG TABLET.DR. PO (08:39)
[2017-11-04] MEDS: LISINOPRIL 20 MG TABLET PO (08:39)
[2017-11-04] MEDS: LACTOBACILLUS RHAMNOSUS GG 1 CAPSULE. PO (08:39)
[2017-11-04] MEDS: ISOSORBIDE MONONITRATE ER 30 MG TAB.ER.24H PO (08:39)
[2017-11-04] MEDS: FUROSEMIDE 40 MG TABLET. PO ×2 (08:39→12:37)
[2017-11-04] MEDS: cefTRIAXone IV Push 1 GM VIAL. IVP (08:40)
[2017-11-04] MEDS: INSULIN LISPRO 300 UNITS/3 ML INSULN.PEN. SQ ×4 (08:48→12:44)
[2017-11-04 11:22] LABS: POC GLUCOSE 345 mg/dL (70-99)
[2017-11-04] MEDS: hydrALAZINE 20 MG/ML VIAL. IVP (12:37)
[2017-11-04] MEDS ORDERED: CARVEDILOL 6.25 MG TABLET. PO (17:00)
== END 2017-11-04 16:30 | disposition home health service (06) | DRG 280 ==
LOC: 2 NORTH 11-02 → ER 08:19 → 1 WEST ICU 10:58
DX: I13.0 Hypertensive heart and chronic kidney disease with heart failure and stage 1 through stage 4 chronic kidney disease, or unspecified chronic kidney disease (principal); G93.41 Metabolic encephalopathy; I21.4 Non-ST elevation (NSTEMI) myocardial infarction; I44.2 Atrioventricular block, complete; N17.9 Acute kidney failure, unspecified; E11.10 Type 2 diabetes mellitus with ketoacidosis without coma; E86.0 Dehydration; E11.22 Type 2 diabetes mellitus with diabetic chronic kidney disease; R65.10 Systemic inflammatory response syndrome (SIRS) of non-infectious origin without acute organ dysfunction; I50.9 Heart failure, unspecified; I42.9 Cardiomyopathy, unspecified; A59.9 Trichomoniasis, unspecified; F17.200 Nicotine dependence, unspecified, uncomplicated; E78.5 Hyperlipidemia, unspecified; K42.9 Umbilical hernia without obstruction or gangrene; N18.9 Chronic kidney disease, unspecified; K76.0 Fatty (change of) liver, not elsewhere classified; R07.89 Other chest pain; I25.2 Old myocardial infarction; Z71.6 Tobacco abuse counseling; Z82.49 Family history of ischemic heart disease and other diseases of the circulatory system
CPT/HCPCS: 36415; 36600; 71045; 74176; 80048; 80053; 81001; 82805; 82962; 83036; 83605; 83735; 84484; 85025; 85027; 87491; 87591; 87641; 93005; 93306; 96361; 96365; 96372; 96375; 97116-GP; 97161-GP; 97166-GO; 97530-GO; 97535-GO; 99285; 99285-25; A4314; J0171; J0360; J0696; J1250; J1265; J1815; J2270; J2405; J3490; J7030; Q0144

== ENCOUNTER → 2017-11-24 | Outpatient (CLI) | payer OTHER | END | disposition home or self-care (01) | LOC: ECHO 08:51 | DX: I50.22 Chronic systolic (congestive) heart failure (principal); I08.0 Rheumatic disorders of both mitral and aortic valves; I27.20 Pulmonary hypertension, unspecified | CPT/HCPCS: 93306 ==

== ENCOUNTER → 2018-05-31 | Outpatient (CLI) | payer OTHER ==
[2017-11-04 15:10] VITALS: BP 135/89
[~2018-05-31] MED LIST changes: +CARV12.52 PO; +CARV6.25 PO; -HYDR-2666 PO; +HYDR-2758 PO; +INSU100I13 SQ; +INSU100I17 SQ; +ISOS60TA2 PO; +LISI-130 PO; +LISI10TA2 PO; +POTA20TA82 PO; +REGADENOSON 0.4 MG/5 ML DISP.SYRIN. IV ONE
--- NOTE | 2018-05-31 12:35 | RAD ---
MR#: [id number] Date of Study: 05/31/2018 Ordering Physician: ABI RAMIREZ Referring Physician: SRAVANTHI PETERS Tech: RT Gloria SortoR) (N) APPROVED REPORT Test Type: Pharmacological Stress Nurse/Tech: Renae Moscoso RN Test Indications: Chronic systolic heart failure Cardiac History: Hypertension, Diabetes,smoker, previous [place] Medications: See Electronic Medical Record Medical History: See Electronic Medical Record Resting ECG: SR Resting Heart Rate: 74 bpm Resting Blood Pressure: 189/111mmHg Pretest Chest Pain: No chest pain Nurse/Tech Notes S1,S2 and lungs clear to auscultation. Consent: The procedure was explained to the patient in lay terms. Informed consent was witnessed. Adiel eout was entered into Motally. History and Stress Test performed by RT Macario (R) (N) Pharm. Details Pharmacologic stress testing was performed using 0.4mg per 5ml of regadenoson given intravenously ove r 7-10 seconds. Stress Symptoms Dizziness POST EXERCISE Reason for Termination: Infusion complete Target HR: No Max HR: 122 bpm Max Blood Pressure: 195/125mmHg Blood Pressure response to exercise: Normal blood pressure response during stress. Heart Rate response to exercise: WNL Chest Pain: No. Arrhythmia: Yes. occasional PVC's ST Change: No. INTERPRETATION Stress EKG Conclusion: Baseline EKG showed sinus rhythm and LVH with repolarization abnormality. Non diagnostic changes at peak stress. Few PVC's without any significant arrhythmias. Imaging Protocol IMAGE PROTOCOL: Rest Tc-99m/stress Tc-99m 1 day Rest: Stress: Viability: Radiopharm.Tc99m LitbrnrtkGs14u Sestamibi Dose10.6mCi 34.7mCi Duration 13min. 13min. Img Date 05/31/2018 05/31/2018 Inj-Img [id number]. 60min. Rest Admin Site:IV - Right AntecubitalAdministrator:RT Gloria SortoR)(N) Stress Admin Site: IV - Right AntecubitalAdministrator: YONATHAN Celaya, ARRT (R)(N) STRESS DATA End Diast. Vol.219.0mlLVEDV index SYK519.0ml End Syst. Vol.129.0mlLVESV index BSA61.0ml Myocardial Ukmr667.0gEject. Vmuaktdt45.0% Stress Scores Regional WT3.00Summed WT36.00 Regional WM0.00Summed WM6.00 LV Perfusion Scintigraphic images showed fixed defect involving the inferior wall consistent with diaphragmatic at tenuation artifact. No other fixed or reversible defects seen. Wall Motion Mild left ventricle systolic dysfunction with ejection fraction catheter at 41%. LV Perf. Quant 17 Seg. SSS11.00 17 Seg. SRS9.00 17 Seg. SDS3.00 Stress Defect Extent (% LAD)1.30Rest Defect Extent (% LAD)0.60Rev. Defect Extent (% LAD)0.00 Stress Defect Extent (% LCX) 91.30Rest Defect Extent (% LCX)51.30Rev. Defect Extent (% LCX)32.50 Stress Defect Extent (% RCA)11.10Rest Defect Extent (% RCA)16.70Rev. Defect Extent (% RCA)0.00 Stress Defect Extent (% KRYSTLE)24.30Rest Defect Extent (% KRYSTLE)19.30Rev. Defect Extent (% KRYSTLE)5.70 Conclusion 1. Regadenoson cardioisotope stress test showed diaphragmatic attenuation artifact without any eviden ce of ischemia or infarct. 2. Mild left ventricle systolic dysfunction with ejection fraction catheter at 41%. 3. Low risk for cardiac events. Signed by : Abi Ramirez, Electronically Approved : 05/31/2018 12:34:19
== END | disposition home or self-care (01) ==
LOC: NM 08:23
PROVIDERS: ATTEND Internal Medicine Cardiovascular Disease
DX: I13.0 Hypertensive heart and chronic kidney disease with heart failure and stage 1 through stage 4 chronic kidney disease, or unspecified chronic kidney disease (principal); E11.22 Type 2 diabetes mellitus with diabetic chronic kidney disease; I50.22 Chronic systolic (congestive) heart failure; N18.2 Chronic kidney disease, stage 2 (mild); I25.2 Old myocardial infarction; Z87.891 Personal history of nicotine dependence
CPT/HCPCS: 78452; 93017; 96374; 96375; 96376; A9500; J2785

== ENCOUNTER 2018-09-29 17:24 | Inpatient (IN) | payer OTHER ==
[~2018-09-29] VITALS: Ht 180.3 cm; Wt 90.7 kg
[~2018-09-29 17:24] MED LIST changes: +CARV12.511 PO; -CARV12.52 PO; +CARV6.2511 PO; -CARV6.252 PO; -HYDR-2758 PO; +HYDR-2761 PO; -REGADENOSON 0.4 MG/5 ML DISP.SYRIN. IV ONE
[2018-09-29] MEDS ORDERED: ASPIRIN 325 MG TABLET PO ONE ×2 (18:15→20:15)
--- NOTE | 2018-09-29 18:21 | PHYS DOC ---
Past Medical History Past Medical History: CHF, Hypertension, NM Past Surgical History: No Surgical History Alcohol Use: None Drug Use: None Adult General Chief Complaint Chief Complaint: RIB PAIN HPI HPI Patient is a 57 year old male with a history of hypertension, CHF, NM, who presents to the ED today complaining of 2 out of 10 pain on the left lateral ribs to his flank region that began today. Patient describes the pain as sharp and constant. Patient denies anything exacerbating or relieving the pain. He states he was unable to eat food today due to the pain. Denies any cough, shortness of breath. Denies any hematuria, urgency frequency or dysuria. Review of Systems Review of Systems Constitutional: Denies fever or chills [] Eyes: Denies change in visual acuity, redness, or eye pain [] HENT: Denies nasal congestion or sore throat [] Respiratory: Reports left lateral rib pain to the flank region. Denies cough or shortness of breath [] Cardiovascular: No additional information not addressed in HPI [] GI: Denies abdominal pain, nausea, vomiting, bloody stools or diarrhea [] : Denies dysuria or hematuria [] Musculoskeletal: Denies back pain or joint pain [] Integument: Denies rash or skin lesions [] Neurologic: Denies headache, focal weakness or sensory changes [] Endocrine: Denies polyuria or polydipsia [] All other systems were reviewed and found to be within normal limits, except as documented in this note. Current Medications Current Medications Current Medications Medications (Trade) Dose Ordered Sig/[facility] Start Time Stop Time Status Last Admin Dose Admin Aspirin (Ilir Aspirin) 325 mg 1X ONCE 09/29/18 20:15 09/29/18 20:16 DC Insulin Human Regular (HumuLIN R VIAL) 10 unit 1X ONCE 09/29/18 19:15 09/29/18 19:16 DC 09/29/18 19:48 10 UNIT Morphine Sulfate (Morphine Sulfate) 4 mg 1X ONCE 09/29/18 18:30 09/29/18 18:31 DC 09/29/18 18:28 4 MG Allergies Allergies Allergies Coded Allergies Type Severity Reaction Last Updated Verified I S O L A T I O N *CONTACT* Allergy Unknown 12/17/15 Yes No Known Medication Allergies Allergy Unknown 12/17/15 Yes Physical Exam Physical Exam Constitutional: Well developed, well nourished, no acute distress, non-toxic appearance. [] HENT: Normocephalic, atraumatic, bilateral external ears normal, oropharynx moist, no oral exudates, nose normal. [] Eyes: PERRLA, EOMI, conjunctiva normal, no discharge. [] Neck: Normal range of motion, no tenderness, supple, no stridor. [] Cardiovascular:Heart rate regular rhythm, no murmur [] Lungs & Thorax: Bilateral breath sounds clear to auscultation [] Abdomen: Rounded abdomen. Bowel sounds normal, soft, no tenderness, no masses, no pulsatile masses. [] Skin: Warm, dry, no erythema, no rash. [] Back: No tenderness, no CVA tenderness. [] Extremities: No tenderness, no cyanosis, no clubbing, ROM intact, no edema. [] Neurologic: Alert and oriented X 3, normal motor function, normal sensory function, no focal deficits noted. [] Psychologic: Affect normal, judgement normal, mood normal. [] Current Patient Data Vital Signs Vital Signs Date Time Temp Pulse Resp B/P (MAP) Pulse Ox O2 Delivery O2 Flow Rate FiO2 09/29/18 20:22 82 14 155/86 (109) 94 Room Air 09/29/18 17:53 98.8 98.8 Lab Values Laboratory Tests Test 09/29/18 17:56 White Blood Count 9.0 x10^3/uL (4.0-11.0) Red Blood Count 5.46 x10^6/uL (4.30-5.70) Hemoglobin 13.4 g/dL (13.0-17.5) Hematocrit 41.5 % (39.0-53.0) Mean Corpuscular Volume 76 fL (79-100) L Mean Corpuscular Hemoglobin 25 pg (25-35) Mean Corpuscular Hemoglobin Concent 32 g/dL (31-37) Red Cell Distribution Width 17.9 % (11.5-14.5) H Platelet Count 325 x10^3/uL (140-400) Neutrophils (%) (Auto) 69 % (31-73) Lymphocytes (%) (Auto) 24 % (24-48) Monocytes (%) (Auto) 6 % (0-9) Eosinophils (%) (Auto) 1 % (0-3) Basophils (%) (Auto) 1 % (0-3) Neutrophils # (Auto) 6.1 x10^3uL (1.8-7.7) Lymphocytes # (Auto) 2.2 x10^3/uL (1.0-4.8) Monocytes # (Auto) 0.5 x10^3/uL (0.0-1.1) Eosinophils # (Auto) 0.1 x10^3/uL (0.0-0.7) Basophils # (Auto) 0.1 x10^3/uL (0.0-0.2) Prothrombin Time 12.3 SEC (11.7-14.0) Prothrombin Time INR 0.9 (0.8-1.1) Sodium Level 127 mmol/L (136-145) L Potassium Level 5.6 mmol/L (3.5-5.1) H Chloride Level 91 mmol/L (98-107) L Carbon Dioxide Level 23 mmol/L (21-32) Anion Gap 13 (6-14) Blood Urea Nitrogen 43 mg/dL (8-26) H Creatinine 2.1 mg/dL (0.7-1.3) H Estimated GFR (Cockcroft-Gault) 39.6 BUN/Creatinine Ratio 20 (6-20) Glucose Level 784 mg/dL (70-99) *H Calcium Level 9.9 mg/dL (8.5-10.1) Magnesium Level 2.1 mg/dL (1.8-2.4) Total Bilirubin 0.7 mg/dL (0.2-1.0) Aspartate Amino Transferase (AST) 14 U/L (15-37) L Alanine Aminotransferase (ALT) 16 U/L (16-63) Alkaline Phosphatase 116 U/L (46-116) Creatine Kinase 233 U/L (39-308) Creatine Kinase MB (Mass) 1.4 ng/mL (0.0-3.6) Creatine Kinase MB Relative Index 0.6 % (0-4) Troponin I Quantitative 0.279 ng/mL (0.000-0.055) QY-Zqd-D-Type Natriuretic Peptide 436 pg/mL (0-124) H Total Protein 8.2 g/dL (6.4-8.2) Albumin 3.5 g/dL (3.4-5.0) Albumin/Globulin Ratio 0.7 (1.0-1.7) L Lipase 1318 U/L (73-393) H Thyroid Stimulating Hormone (TSH) 0.587 uIU/mL (0.358-3.74) Laboratory Tests 09/29/18 17:56 Laboratory Tests 09/29/18 17:56 EKG EKG [] Radiology/Procedures Radiology/Procedures [] Course & Med Decision Making Course & Med Decision Making Pertinent Labs and Imaging studies reviewed. (See chart for details) This is a 57-year-old male patient with history of NM presenting to the ED today complaining of diffuse pain to the left lateral ribs stretching to the left flank region, symptoms began today. CBC with no acute findings, troponin 0.279, patient has history of elevated troponin given aspirin and results discussed with Dr. Brown. Negative for STEMI on EKG. CMP with sodium of 127, potassium 5.9-patient was given Kayexalate , blood glucose 784, patient was given 10 units of insulin, also started on IV fluids which will also help decrease the potassium level. IV fluids were given in conservative manor considering his creatinine is 2.1 with BUN of 43, he has history of chronic renal failure. He is not on dialysis. He also has CHF. BNP 436. Lipase 1318, patient has no history of pancreatitis. CT is negative. GI consulted. Spoke with Dr. Deena Acevedo who accepted patient for admission on behalf of Dr.Killiam Cook Disclaimer Joyce Disclaimer This electronic medical record was generated, in whole or in part, using a voice recognition dictation system. Departure Departure Impression: Primary Impression: Hyperglycemia Additional Impressions: Chronic renal failure Hyponatremia Hyperkalemia NSTEMI (non-ST elevated myocardial infarction) Acute pancreatitis Disposition: 09 ADMITTED INPATIENT Condition: STABLE Referrals: ROSALINE ROBERTSON MD (PCP) Problem Qualifiers Additional Impressions: Chronic renal failure Chronic kidney disease stage: unspecified stage Qualified Codes: N18.9 - Chronic kidney disease, unspecified Acute pancreatitis Pancreatitis type: unspecified pancreatitis type Acute pancreatitis complication: unspecified Qualified Codes: K85.90 - Acute pancreatitis without necrosis or infection, unspecified [employer] Sep 29, 2018 18:21
[2018-09-29 18:24] LABS: BASO # 0.1 x10^3/uL (0.0-0.2); BASO % 1 % (0-3); EOS # 0.1 x10^3/uL (0.0-0.7); EOS % 1 % (0-3); HEMATOCRIT 41.5 % (39.0-53.0); HEMOGLOBIN 13.4 g/dL (13.0-17.5); LYMPH # 2.2 x10^3/uL (1.0-4.8); LYMPH % 24 % (24-48); MEAN CORPUSCULAR HEMOGLOBIN 25 pg (25-35); MEAN CORPUSCULAR HGB CONC 32 g/dL (31-37); MEAN CORPUSCULAR VOLUME 76 fL (79-100); MONO # 0.5 x10^3/uL (0.0-1.1); MONO % 6 % (0-9); NEUT # 6.1 x10^3uL (1.8-7.7); NEUT % 69 % (31-73); PLATELET COUNT 325 x10^3/uL (140-400); RED BLOOD COUNT 5.46 x10^6/uL (4.30-5.70); RED CELL DISTRIBUTION WIDTH 17.9 % (11.5-14.5)
[2018-09-29] MEDS ORDERED: MORPHINE SULFATE 4 MG/ML VIAL. IV ONE (18:30)
[2018-09-29 18:33] LABS: PROTHROMBIN TIME PATIENT 12.3 SEC (11.7-14.0)
[2018-09-29 18:36] LABS: CALCIUM 9.9 mg/dL (8.5-10.1); CREATININE 2.1 mg/dL (0.7-1.3); GFR 39.6; POTASSIUM 5.6 mmol/L (3.5-5.1)
[2018-09-29 18:38] LABS: ALBUMIN 3.5 g/dL (3.4-5.0); ALBUMIN/GLOBULIN RATIO 0.7 (1.0-1.7); MAGNESIUM 2.1 mg/dL (1.8-2.4); TOTAL BILIRUBIN 0.7 mg/dL (0.2-1.0); TOTAL PROTEIN 8.2 g/dL (6.4-8.2)
[2018-09-29] MEDS ORDERED: INSULIN REGULAR 100 UNIT/ML 3ML VIAL. IV ONE (19:15)
--- NOTE | 2018-09-29 19:34 | RAD ---
CT Abdomen and Pelvis without contrast History: Severe left flank pain Technique: Noncontrast CT imaging was performed of the abdomen and pelvis. Multiplanar images are reviewed. Exposure: One or more of the following individualized dose reduction techniques were utilized for this examination: 1. Automated exposure control 2. Adjustment of the mA and/or kV according to patient size 3. Use of iterative reconstruction technique. Comparison: October 31, 2017 Findings: There is motion degradation. There is no pleural fluid. There is no hydronephrosis or urolithiasis. 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 There is no adrenal nodularity. Gallbladder is present without obvious intraluminal abnormality, contracted appearance. Accurate evaluation of the abdominal visceral organs is limited without intravenous contrast. There is no obvious focal abnormality of the liver, pancreas, small spleen. Evaluation of bowel is limited without oral contrast. Normal appendix is visualized. There is no bowel dilatation, free air, free fluid. It is difficult to exclude mild wall thickening of the mid to distal sigmoid colon. There is ventral hernia in the pelvis near umbilicus, neck about 4.2 cm and transverse dimension hernia sac about 3.5 cm, contains short segment of nondilated small bowel. Urinary bladder is not well-distended, appearance of wall thickening which may be due to incomplete distention. There is some fat in the inguinal canals bilaterally greater on the left, no bowel. There is some scattered atherosclerotic calcification abdominal aorta and iliac arteries. There is facet degenerative change greater inferiorly of the lumbar spine. There is multilevel degenerative disc disease greater inferiorly of the lumbar spine. There are some bridging osteophytes of the sacroiliac joints, fused on the right. Impression: 1. There is no urolithiasis or hydronephrosis. There is ventral hernia near the umbilicus containing short segment of nondilated small bowel. There is also fat in the inguinal canals bilaterally left greater than right, no internal bowel. 2. Urinary bladder is not well-distended, cannot exclude wall thickening as could be seen with cystitis in the appropriate clinical setting although findings could be due to nondistention. 3. Wall thickening of the mid to distal sigmoid colon as can be seen with colitis is difficult to exclude on this exam. Electronically signed by: Patricio Lewis MD (09/29/2018 7:31 PM) [facility]
[2018-09-29 22:08] LABS: BILIRUBIN,URINE NEGATIVE (NEG); CLARITY,URINE CLEAR; COLOR,URINE YELLOW; NITRITE,URINE NEGATIVE (NEG); PROTEIN,URINE NEGATIVE (NEG-TRACE); UROBILINOGEN,URINE 0.2 mg/dL (0.2 mg/dL)
[2018-09-29 22:12] LABS: BACTERIA,URINE 0 /HPF (0-FEW); RBC,URINE 0 /HPF (0-2); SQUAMOUS EPITHELIAL CELL,UR OCC /LPF; WBC,URINE 0 /HPF (0-4)
[2018-09-29 22:14] LABS: AMPHETAMINE/METHAMPHETAMINE NEG (NEG); BARBITURATES NEG (NEG); BENZODIAZEPINES NEG (NEG); CANNABINOIDS NEG (NEG); COCAINE NEG (NEG); METHADONE NEG (NEG); OPIATES POS (NEG); PHENCYCLIDINE NEG (NEG)
[2018-09-29] MEDS ORDERED: ONDANSETRON PF 4 MG/2 ML VIAL. IV PRN (22:15)
[2018-09-29] MEDS ORDERED: MORPHINE SULFATE 4 MG/ML VIAL. IV PRN (22:15)
[2018-09-29] MEDS ORDERED: IV NORMAL SALINE 1000ML BAG 1,000 ML IV ONE (22:15)
[2018-09-29] MEDS ORDERED: SODIUM POLYSTYRENE SULFONATE 15 GM/60 ML ORAL.SUSP. PO ONE (23:45)
[2018-09-29] MEDS ORDERED: DEXTROSE 50% 25 GM / 50ML DISP.SYRIN. IV PRN (23:45)
[2018-09-30] VITALS (7 sets, daily range): BP systolic 141–191; BP diastolic 83–95
--- NOTE | 2018-09-30 01:04 | NUR ---
Pt arrived to room 209 via gurney from ER at 2210 accompanied by this RN. His L rib pain complaint has resolved "because I am not doing anything." He is A/O x4 but is a somewhat unreliable historian, but does state that he has an appointment with Dr. Mendoza on November 24 at 2:30 pm. His abdomen is firm and distended, pt states "I really want to loose weight." Bowel sounds normoactive throughout and pt states last bm on 09/29 was normal. Lungs dorcas cta, vss, fsbs above limits to read from glucometer, stat lab draw ordered. Will call MD with results as soon as available. Pt states last cigarette and last drink was 2017.
[2018-09-30] MEDS ORDERED: INSULIN LISPRO 300 UNITS/3 ML INSULN.PEN. SQ ONE ×2 (01:45→03:15)
[2018-09-30 05:34] LABS: BASO # 0.1 x10^3/uL (0.0-0.2); BASO % 1 % (0-3); EOS # 0.1 x10^3/uL (0.0-0.7); EOS % 1 % (0-3); HEMATOCRIT 40.5 % (39.0-53.0); HEMOGLOBIN 12.8 g/dL (13.0-17.5); LYMPH # 3.4 x10^3/uL (1.0-4.8); LYMPH % 36 % (24-48); MEAN CORPUSCULAR HEMOGLOBIN 24 pg (25-35); MEAN CORPUSCULAR HGB CONC 32 g/dL (31-37); MEAN CORPUSCULAR VOLUME 76 fL (79-100); MONO # 0.7 x10^3/uL (0.0-1.1); MONO % 8 % (0-9); NEUT # 5.1 x10^3uL (1.8-7.7); NEUT % 54 % (31-73); PLATELET COUNT 319 x10^3/uL (140-400); RED BLOOD COUNT 5.34 x10^6/uL (4.30-5.70); RED CELL DISTRIBUTION WIDTH 17.6 % (11.5-14.5); WHITE BLOOD COUNT 9.3 x10^3/uL (4.0-11.0)
[2018-09-30 05:49] LABS: CALCIUM 9.4 mg/dL (8.5-10.1); GFR 41.9; POTASSIUM 4.2 mmol/L (3.5-5.1)
--- NOTE | 2018-09-30 07:48 | PDOC1 ---
History and Physical Date of Admission Date of Admission 09/29/18 Identification/Chief Complaint Chief Complaint Side hurting Source Source: Patient History of Present Illness History of Present Illness Pt came to the ER c/o left sided flank pain that pt says starts from around her shoulder and goes down his entire left flank. Woke up with this pain and it never improved so came to the ER. Upon arrival was found to have significantly elevated blood sugars and elevated lipase. He denies any abdominal pain. He has noticed increased frequency of urination for the past couple of weeks. Denies dysuria. He does not check his blood sugars at home but says that he has been compliant with his medicines. He does get left sided chest pain intermittently. He has otherwise been doing well. Past Medical History Cardiovascular: CHF, HTN, UT, Hyperlipidemia, Other Pulmonary: No pertinent hx CENTRAL NERVOUS SYSTEM: Other GI: GI bleed Heme/Onc: No pertinent hx Hepatobiliary: No pertinent hx Psych: No pertinent hx Rheumatologic: No pertinent hx Infectious disease: No pertinent hx ENT: No pertinent hx Renal/: No pertinent hx Endocrine: Diabetes Dermatology: No pertinent hx Past Surgical History Past Surgical History: No pertinent history Family History Family History: Hypertension, Family History Unknown, Other Social History Smoke: <1 pack per day ALCOHOL: none Drugs: None Current Problem List Problem List Problems Medical Problems: (1) Acute pancreatitis Status: Acute (2) Chronic renal failure Status: Acute (3) Hyperglycemia Status: Acute (4) Hyperkalemia Status: Acute (5) Hyponatremia Status: Acute (6) NSTEMI (non-ST elevated myocardial infarction) Status: Acute Current Medications Current Medications Current Medications Medications (Trade) Dose Ordered Sig/Deann Start Time Stop Time Status Last Admin Dose Admin Aspirin (Ilir Aspirin) 325 mg 1X ONCE 09/29/18 20:15 09/29/18 20:16 DC Dextrose (Dextrose 50%-Water Syringe) 12.5 gm PRN Q15MIN PRN 09/29/18 23:45 Insulin Human Lispro (HumaLOG) 10 units 1X ONCE 09/30/18 03:15 09/30/18 03:16 DC 09/30/18 03:13 10 UNITS Insulin Human Regular (HumuLIN R VIAL) 10 unit 1X ONCE 09/29/18 19:15 09/29/18 19:16 DC 09/29/18 19:48 10 UNIT Morphine Sulfate (Morphine Sulfate) 2 mg PRN Q2HR PRN 09/29/18 22:15 09/30/18 22:14 Ondansetron HCl (Zofran) 4 mg PRN Q8HRS PRN 09/29/18 22:15 09/30/18 22:14 Sodium Polystyrene Sulfonate (Kayexalate) 30 gm 1X ONCE 09/29/18 23:45 09/29/18 23:46 DC 09/30/18 00:03 30 GM Sodium Chloride 1,000 ml @ 100 mls/hr Q10H 09/30/18 07:30 Allergies Allergies Allergies Coded Allergies Type Severity Reaction Last Updated Verified I S O L A T I O N *CONTACT* Allergy Unknown 12/17/15 Yes No Known Medication Allergies Allergy Unknown 12/17/15 Yes ROS Review of System CONSTITUTIONAL: No fever or chills EYES: No recent changes SKIN: No rash or itching CARDIOVASCULAR: No syncope, palpitations, or edema +CP RESPIRATORY: No SOB or cough GASTROINTESTINAL: No nausea, vomiting or abdominal pain, +left flank pain NEUROLOGICAL: No headaches or weakness ENDOCRINE: No cold or heat intolerance GENITOURINARY: No urgency,+ frequency of urination MUSCULOSKELETAL: No back pain or joint pain LYMPHATICS: No enlarged lymph nodes PSYCHIATRIC: No anxiety or depression Physical Exam Physical Exam GEN.: No apparent distress. Alert and oriented. HEENT: Head is normocephalic, atraumatic NECK: Supple. LUNGS: Clear to auscultation. HEART: RRR, S1, S2 present. Peripheral pulses intact ABDOMEN: Soft, distended, nontender. Positive bowel sounds. EXTREMITIES: Without any cyanosis. NEUROLOGIC: Normal speech, normal tone PSYCHIATRIC: Normal affect, normal mood. SKIN: No ulcerations Vitals Vitals Vital Signs Date Time Temp Pulse Resp B/P (MAP) Pulse Ox O2 Delivery O2 Flow Rate FiO2 09/30/18 07:00 98.6 81 20 152/95 (114) 96 Room Air 98.6 Labs Labs Laboratory Tests Test 09/29/18 17:56 09/29/18 22:01 09/30/18 00:30 09/30/18 02:56 White Blood Count 9.0 x10^3/uL (4.0-11.0) Red Blood Count 5.46 x10^6/uL (4.30-5.70) Hemoglobin 13.4 g/dL (13.0-17.5) Hematocrit 41.5 % (39.0-53.0) Mean Corpuscular Volume 76 fL (79-100) Mean Corpuscular Hemoglobin 25 pg (25-35) Mean Corpuscular Hemoglobin Concent 32 g/dL (31-37) Red Cell Distribution Width 17.9 % (11.5-14.5) Platelet Count 325 x10^3/uL (140-400) Neutrophils (%) (Auto) 69 % (31-73) Lymphocytes (%) (Auto) 24 % (24-48) Monocytes (%) (Auto) 6 % (0-9) Eosinophils (%) (Auto) 1 % (0-3) Basophils (%) (Auto) 1 % (0-3) Neutrophils # (Auto) 6.1 x10^3uL (1.8-7.7) Lymphocytes # (Auto) 2.2 x10^3/uL (1.0-4.8) Monocytes # (Auto) 0.5 x10^3/uL (0.0-1.1) Eosinophils # (Auto) 0.1 x10^3/uL (0.0-0.7) Basophils # (Auto) 0.1 x10^3/uL (0.0-0.2) Prothrombin Time 12.3 SEC (11.7-14.0) Prothromb Time International Ratio 0.9 (0.8-1.1) Sodium Level 127 mmol/L (136-145) Potassium Level 5.6 mmol/L (3.5-5.1) Chloride Level 91 mmol/L (98-107) Carbon Dioxide Level 23 mmol/L (21-32) Anion Gap 13 (6-14) Blood Urea Nitrogen 43 mg/dL (8-26) Creatinine 2.1 mg/dL (0.7-1.3) Estimated GFR (Cockcroft-Gault) 39.6 BUN/Creatinine Ratio 20 (6-20) Glucose Level 784 mg/dL (70-99) 659 mg/dL (70-99) Calcium Level 9.9 mg/dL (8.5-10.1) Magnesium Level 2.1 mg/dL (1.8-2.4) Total Bilirubin 0.7 mg/dL (0.2-1.0) Aspartate Amino Transf (AST/SGOT) 14 U/L (15-37) Alanine Aminotransferase (ALT/SGPT) 16 U/L (16-63) Alkaline Phosphatase 116 U/L (46-116) Creatine Kinase 233 U/L (39-308) Creatine Kinase MB (Mass) 1.4 ng/mL (0.0-3.6) Creatine Kinase MB Relative Index 0.6 % (0-4) Troponin I Quantitative 0.279 ng/mL (0.000-0.055) 0.297 ng/mL (0.000-0.055) MN-Rxj-Q-Type Natriuretic Peptide 436 pg/mL (0-124) Total Protein 8.2 g/dL (6.4-8.2) Albumin 3.5 g/dL (3.4-5.0) Albumin/Globulin Ratio 0.7 (1.0-1.7) Lipase 1318 U/L (73-393) Thyroid Stimulating Hormone (TSH) 0.587 uIU/mL (0.358-3.74) Urine Collection Type Unknown Urine Color Yellow Urine Clarity Clear Urine pH 5.0 Urine Specific [place] 1.025 Urine Protein Negative mg/dL (NEG-TRACE) Urine Glucose (UA) >=1000 mg/dL (NEG) Urine Ketones (Stick) Negative mg/dL (NEG) Urine Blood Negative (NEG) Urine Nitrite Negative (NEG) Urine Bilirubin Negative (NEG) Urine Urobilinogen Dipstick 0.2 mg/dL (0.2 mg/dL) Urine Leukocyte Esterase Negative (NEG) Urine RBC 0 /HPF (0-2) Urine WBC 0 /HPF (0-4) Urine Squamous Epithelial Cells Occ /LPF Urine Bacteria 0 /HPF (0-FEW) Urine Opiates Screen Pos (NEG) Urine Methadone Screen Neg (NEG) Urine Barbiturates Neg (NEG) Urine Phencyclidine Screen Neg (NEG) Urine Amphetamine/Methamphetamine Neg (NEG) Urine Benzodiazepines Screen Neg (NEG) Urine Cocaine Screen Neg (NEG) Urine Cannabinoids Screen Neg (NEG) Urine Ethyl Alcohol Neg (NEG) Glucose (Fingerstick) 532 mg/dL (70-99) Test 09/30/18 04:00 09/30/18 04:08 09/30/18 04:19 09/30/18 07:36 White Blood Count 9.3 x10^3/uL (4.0-11.0) Red Blood Count 5.34 x10^6/uL (4.30-5.70) Hemoglobin 12.8 g/dL (13.0-17.5) Hematocrit 40.5 % (39.0-53.0) Mean Corpuscular Volume 76 fL (79-100) Mean Corpuscular Hemoglobin 24 pg (25-35) Mean Corpuscular Hemoglobin Concent 32 g/dL (31-37) Red Cell Distribution Width 17.6 % (11.5-14.5) Platelet Count 319 x10^3/uL (140-400) Neutrophils (%) (Auto) 54 % (31-73) Lymphocytes (%) (Auto) 36 % (24-48) Monocytes (%) (Auto) 8 % (0-9) Eosinophils (%) (Auto) 1 % (0-3) Basophils (%) (Auto) 1 % (0-3) Neutrophils # (Auto) 5.1 x10^3uL (1.8-7.7) Lymphocytes # (Auto) 3.4 x10^3/uL (1.0-4.8) Monocytes # (Auto) 0.7 x10^3/uL (0.0-1.1) Eosinophils # (Auto) 0.1 x10^3/uL (0.0-0.7) Basophils # (Auto) 0.1 x10^3/uL (0.0-0.2) Sodium Level 133 mmol/L (136-145) Potassium Level 4.2 mmol/L (3.5-5.1) Chloride Level 95 mmol/L (98-107) Carbon Dioxide Level 25 mmol/L (21-32) Anion Gap 13 (6-14) Blood Urea Nitrogen 37 mg/dL (8-26) Creatinine 2.0 mg/dL (0.7-1.3) Estimated GFR (Cockcroft-Gault) 41.9 Glucose Level 476 mg/dL (70-99) Calcium Level 9.4 mg/dL (8.5-10.1) Troponin I Quantitative 0.311 ng/mL (0.000-0.055) Glucose (Fingerstick) 440 mg/dL (70-99) 436 mg/dL (70-99) 174 mg/dL (70-99) Laboratory Tests Test 09/29/18 17:56 09/29/18 22:01 09/30/18 00:30 09/30/18 02:56 White Blood Count 9.0 x10^3/uL (4.0-11.0) Red Blood Count 5.46 x10^6/uL (4.30-5.70) Hemoglobin 13.4 g/dL (13.0-17.5) Hematocrit 41.5 % (39.0-53.0) Mean Corpuscular Volume 76 fL (79-100) Mean Corpuscular Hemoglobin 25 pg (25-35) Mean Corpuscular Hemoglobin Concent 32 g/dL (31-37) Red Cell Distribution Width 17.9 % (11.5-14.5) Platelet Count 325 x10^3/uL (140-400) Neutrophils (%) (Auto) 69 % (31-73) Lymphocytes (%) (Auto) 24 % (24-48) Monocytes (%) (Auto) 6 % (0-9) Eosinophils (%) (Auto) 1 % (0-3) Basophils (%) (Auto) 1 % (0-3) Neutrophils # (Auto) 6.1 x10^3uL (1.8-7.7) Lymphocytes # (Auto) 2.2 x10^3/uL (1.0-4.8) Monocytes # (Auto) 0.5 x10^3/uL (0.0-1.1) Eosinophils # (Auto) 0.1 x10^3/uL (0.0-0.7) Basophils # (Auto) 0.1 x10^3/uL (0.0-0.2) Prothrombin Time 12.3 SEC (11.7-14.0) Prothromb Time International Ratio 0.9 (0.8-1.1) Sodium Level 127 mmol/L (136-145) Potassium Level 5.6 mmol/L (3.5-5.1) Chloride Level 91 mmol/L (98-107) Carbon Dioxide Level 23 mmol/L (21-32) Anion Gap 13 (6-14) Blood Urea Nitrogen 43 mg/dL (8-26) Creatinine 2.1 mg/dL (0.7-1.3) Estimated GFR (Cockcroft-Gault) 39.6 BUN/Creatinine Ratio 20 (6-20) Glucose Level 784 mg/dL (70-99) 659 mg/dL (70-99) Calcium Level 9.9 mg/dL (8.5-10.1) Magnesium Level 2.1 mg/dL (1.8-2.4) Total Bilirubin 0.7 mg/dL (0.2-1.0) Aspartate Amino Transf (AST/SGOT) 14 U/L (15-37) Alanine Aminotransferase (ALT/SGPT) 16 U/L (16-63) Alkaline Phosphatase 116 U/L (46-116) Creatine Kinase 233 U/L (39-308) Creatine Kinase MB (Mass) 1.4 ng/mL (0.0-3.6) Creatine Kinase MB Relative Index 0.6 % (0-4) Troponin I Quantitative 0.279 ng/mL (0.000-0.055) 0.297 ng/mL (0.000-0.055) MK-Hce-X-Type Natriuretic Peptide 436 pg/mL (0-124) Total Protein 8.2 g/dL (6.4-8.2) Albumin 3.5 g/dL (3.4-5.0) Albumin/Globulin Ratio 0.7 (1.0-1.7) Lipase 1318 U/L (73-393) Thyroid Stimulating Hormone (TSH) 0.587 uIU/mL (0.358-3.74) Urine Collection Type Unknown Urine Color Yellow Urine Clarity Clear Urine pH 5.0 Urine Specific [place] 1.025 Urine Protein Negative mg/dL (NEG-TRACE) Urine Glucose (UA) >=1000 mg/dL (NEG) Urine Ketones (Stick) Negative mg/dL (NEG) Urine Blood Negative (NEG) Urine Nitrite Negative (NEG) Urine Bilirubin Negative (NEG) Urine Urobilinogen Dipstick 0.2 mg/dL (0.2 mg/dL) Urine Leukocyte Esterase Negative (NEG) Urine RBC 0 /HPF (0-2) Urine WBC 0 /HPF (0-4) Urine Squamous Epithelial Cells Occ /LPF Urine Bacteria 0 /HPF (0-FEW) Urine Opiates Screen Pos (NEG) Urine Methadone Screen Neg (NEG) Urine Barbiturates Neg (NEG) Urine Phencyclidine Screen Neg (NEG) Urine Amphetamine/Methamphetamine Neg (NEG) Urine Benzodiazepines Screen Neg (NEG) Urine Cocaine Screen Neg (NEG) Urine Cannabinoids Screen Neg (NEG) Urine Ethyl Alcohol Neg (NEG) Glucose (Fingerstick) 532 mg/dL (70-99) Test 09/30/18 04:00 09/30/18 04:08 09/30/18 04:19 09/30/18 07:36 White Blood Count 9.3 x10^3/uL (4.0-11.0) Red Blood Count 5.34 x10^6/uL (4.30-5.70) Hemoglobin 12.8 g/dL (13.0-17.5) Hematocrit 40.5 % (39.0-53.0) Mean Corpuscular Volume 76 fL (79-100) Mean Corpuscular Hemoglobin 24 pg (25-35) Mean Corpuscular Hemoglobin Concent 32 g/dL (31-37) Red Cell Distribution Width 17.6 % (11.5-14.5) Platelet Count 319 x10^3/uL (140-400) Neutrophils (%) (Auto) 54 % (31-73) Lymphocytes (%) (Auto) 36 % (24-48) Monocytes (%) (Auto) 8 % (0-9) Eosinophils (%) (Auto) 1 % (0-3) Basophils (%) (Auto) 1 % (0-3) Neutrophils # (Auto) 5.1 x10^3uL (1.8-7.7) Lymphocytes # (Auto) 3.4 x10^3/uL (1.0-4.8) Monocytes # (Auto) 0.7 x10^3/uL (0.0-1.1) Eosinophils # (Auto) 0.1 x10^3/uL (0.0-0.7) Basophils # (Auto) 0.1 x10^3/uL (0.0-0.2) Sodium Level 133 mmol/L (136-145) Potassium Level 4.2 mmol/L (3.5-5.1) Chloride Level 95 mmol/L (98-107) Carbon Dioxide Level 25 mmol/L (21-32) Anion Gap 13 (6-14) Blood Urea Nitrogen 37 mg/dL (8-26) Creatinine 2.0 mg/dL (0.7-1.3) Estimated GFR (Cockcroft-Gault) 41.9 Glucose Level 476 mg/dL (70-99) Calcium Level 9.4 mg/dL (8.5-10.1) Troponin I Quantitative 0.311 ng/mL (0.000-0.055) Glucose (Fingerstick) 440 mg/dL (70-99) 436 mg/dL (70-99) 174 mg/dL (70-99) VTE Prophylaxis Ordered VTE Prophylaxis Devices: No VTE Pharmacological Prophylaxi: Yes Assessment/Plan Assessment/Plan Pt is a 57yo AAM admitted for HHS 1)HHS- pt received 30 units of Humalog since being in the ER and BS this morning came down nicely to 178. Has IVF running. Hyperkalemia correcting. Pt resumed on home medications of Novolog 15u qac and Lantus 25U qhs with SSI available. Pt does not check his BS at home. HbA1C pending. 2)Hyperkalemia- 2/2 above, resolved. CTM 3)Acute on CKD- pt receiving IVF hydration, Renal consulted in the ER. CTM 4)Hyponatremia- resolving with IVF hydration and glycemic control 5)Pancreatitis- lipase levels improving. Pt denies alcohol use. Denies abdominal pain 6)Elevated troponin- appears to be chronic. Cardiology consulted in ER. It appears pt had a stress test in 2015 7)HTN- not at goal. Pt resumed on Carvedilol 6.25mg BID, Imdur 60mg ER and hydralazine 50mg BID. Will hold lisinopril for now due to acute on CKD 8)CHF- systolic, compensated. KALIA BLAKELY MD Sep 30, 2018 07:48
--- NOTE | 2018-09-30 08:14 | RAD ---
Indication:ER PATIENT. LEFT SIDE FLANK PAIN. Hx HTN, DIABETES. PRIOR XRAY. TECHNIQUE:Portable AP chest X-ray COMPARISON:10/31/2017 FINDINGS: Heart is normal in size. Stable ectatic thoracic aorta. Lungs are clear. No pneumothorax or pleural effusion. Visualized bony thorax is within normal limits. IMPRESSION: No acute pulmonary process. Electronically signed by: Wolfgang Padilla DO (09/30/2018 8:10 AM) [facility]
--- NOTE | 2018-09-30 08:42 | EKG ---
[facility] [address] [place] [address] Test Date: 2018-09-29 Test Time: 17:51:10 Pat Name: TESFAYE CUEVAS Department: Room: 209 1 Gender: M [employer]: : [id number] Requested By: NATHAN PERALTA Order Number: [id number] Reading MD: Nik Brown MD Measurements Intervals [place] Rate: 77 P: 76 TN: 110 QRS: 13 QRSD: 98 T: 140 QT: 370 QTc: 420 Interpretive Statements SINUS RHYTHM LVH Electronically Signed On 09-30-2018 17:28:09 CDT by Nik Brown MD
[2018-09-30] MEDS: CARVEDILOL 6.25 MG TABLET. PO SCH ×2 (08:49→16:47)
[2018-09-30] MEDS: ISOSORBIDE MONONITRATE ER 30 MG TAB.ER.24H PO SCH (08:49)
[2018-09-30] MEDS: PANTOPRAZOLE 40 MG TABLET.DR. PO SCH (08:49)
[2018-09-30] MEDS: IV NORMAL SALINE 1000ML BAG 1,000 ML IV SCH ×2 (08:50→16:48)
[2018-09-30 09:15] LABS: CHOLESTEROL/HDL RATIO 6.5
--- NOTE | 2018-09-30 09:47 | NUR ---
IP: Pt has a hx of + mrsa screens since 2016 with most recent on 10/31/17. Pt to be in contact precautions until there are 2 negative screens 7 days apart.
[2018-09-30] MEDS: INSULIN LISPRO 300 UNITS/3 ML INSULN.PEN. SQ SCH ×6 (10:06→17:54)
--- NOTE | 2018-09-30 10:44 | NUR ---
SS following for discharge planning. SS reviewed pt chart. Pt is from home and is currently on room air. No discharge needs noted at this time. SS will continue to follow for pending discharge needs.
--- NOTE | 2018-09-30 11:45 | CARD ---
MR#: [id number] Date of Study: 09/30/2018 Ordering Physician: EL MO, Referring Physician: ROSALINE ROBERTSON, Tech: Aretha Bowman APPROVED REPORT EXAM: Two-dimensional and M-mode echocardiogram with Doppler and color Doppler. Other Information Quality : AverageHR: 91bpm INDICATION Non STEMI RISK FACTORS Hypertension Diabetes Previous smoker 2D DIMENSIONS Left Atrium(2D)4.1 (1.6-4.0cm)IVSd1.6 (0.7-1.1cm) Aortic Root(2D)3.5 (2.0-3.7cm)LVDd6.3 (3.9-5.9cm) LVOT Diameter2.3 (1.8-2.4cm)PWd1.3 (0.7-1.1cm) LVDs4.0 (2.5-4.0cm)FS (%) 37.4 % SV134.6 mlLVEF(%)66.4 (>50%) Aortic Valve AoV Peak Harjit.148.6cm/sAoV VTI14.3cm AO Peak GR.8.8mmHgLVOT Peak Harjit.110.7cm/s LVOT VTI 20.66cmAO Mean GR.3mmHg SONIA (VMAX)2.87cj7VOD (VTI)6.06cm2 AI P 1/2 Tukw618ly Mitral Valve MV E Ahzqexzz08.1cm/sMV DECEL [id number] MV A Ibtkxcxt29.4cm/sMV YFA87lg E/A Ratio0.4MVA (PHT)5.13cm2 TDI E/Lateral E'4.7E/Medial E'4.1 Pulmonary Valve PV Peak Jzsecepw618.7cm/sPV Peak Grad.5mmHg Tricuspid Valve TR P. Nvqkwnhk168xw/sRAP EWYIHRSC7ybYl TR Peak Gr.66wpHnEYHR54wxLv Pulmonary Vein S1 Amvjzmqv96.4cm/sD2 Olhpisvi91.0cm/s PVa [id number] LEFT VENTRICLE The Left Ventricle is mildly dilated. There is moderate concentric left ventricular hypertrophy. The left ventricular systolic function is normal and the ejection fraction is within normal range. The Ej ection Fraction is >55%. There is normal LV segmental wall motion. Septal motion suggestive of conduc tion defect. Transmitral Doppler flow pattern is Grade I-abnormal relaxation pattern. RIGHT VENTRICLE The right ventricle is normal size. There is normal right ventricular wall thickness. The right ventr icular systolic function is normal. ATRIA The left atrium size is normal. The right atrium size is normal. The atrial septum is aneurysmal. AORTIC VALVE The aortic valve is normal in structure and function. Doppler and Color Flow revealed trace to mild a ortic regurgitation. There is no significant aortic valvular stenosis. MITRAL VALVE The mitral valve is normal in structure and function. There is no evidence of mitral valve prolapse. There is no mitral valve stenosis. Doppler and Color Flow revealed no mitral valve regurgitation note d. TRICUSPID VALVE The tricuspid valve is normal in structure and function. Doppler and Color Flow revealed no tricuspid valve regurgitation noted. There is no tricuspid valve stenosis. PULMONIC VALVE The pulmonic valve is not well visualized. Doppler and Color Flow revealed no pulmonic valvular regur gitation. There is no pulmonic valvular stenosis. GREAT VESSELS The aortic root is normal in size. The IVC is normal in size and collapses >50% with inspiration. PERICARDIAL EFFUSION There is no evidence of significant pericardial effusion. Critical Notification Critical Value: No <Conclusion> The left ventricular systolic function is normal and the ejection fraction is within normal range. Th e Ejection Fraction is >55%. There is normal LV segmental wall motion. Septal motion suggestive of conduction defect. The atrial septum is aneurysmal. Signed by : Nik Brown, Electronically Approved : 09/30/2018 11:44:38
--- NOTE | 2018-09-30 12:26 | PDOC2 ---
CARDIAC CONSULT DATE OF CONSULT Date of Consult DATE: 09/30/18 TIME: 12:11 REASON FOR CONSULT Reason for Consult: NSTEMI- chronic REFERRING PHYSICIAN Referring Physician: Portia Cardenas APRN SOURCE Source: Chart review, Patient HISTORY OF PRESENT ILLNESS HISTORY OF PRESENT ILLNESS This is a 57 yo male who presented secondary to left lateral side pain. Patient reports waking up with pain yesterday morning. Decided to come to the ED. Denies any chest pain, palpitations, dizziness, diaphoresis, SOA, or nausea/ vomiting. Troponin was noted to be mildly elevated, which prompted this consult. Has a history of DM,II and DKA. Does not chest blood glucose at home. BS >700 upon arrival. Reports feeling much better today. PAST MEDICAL HISTORY Past Medical History Cardiovascular: CHF, CMP, HTN, HI, Hyperlipidemia, Other Pulmonary: No pertinent hx CENTRAL NERVOUS SYSTEM: Other GI: GI bleed Heme/Onc: No pertinent hx Hepatobiliary: No pertinent hx Psych: No pertinent hx Musculoskeletal: Other Rheumatologic: No pertinent hx Infectious disease: No pertinent hx Renal/: No pertinent hx Endocrine: Diabetes PAST SURGICAL HISTORY Past Surgical History: No pertinent history FAMILY HISTORY Family History: Hypertension SOCIAL HISTORY Smoke: Quit ALCOHOL: none Drugs: None Lives: with Family CURRENT MEDICATIONS CURRENT MEDICATIONS Current Medications Medications (Trade) Dose Ordered Sig/Deann Route PRN Reason Start Time Stop Time Status Last Admin Dose Admin Aspirin (Ilir Aspirin) 325 mg 1X ONCE PO 09/29/18 18:15 09/29/18 18:16 DC 09/29/18 18:28 Morphine Sulfate (Morphine Sulfate) 4 mg 1X ONCE IV 09/29/18 18:30 09/29/18 18:31 DC 09/29/18 18:28 Insulin Human Regular (HumuLIN R VIAL) 10 unit 1X ONCE IV 09/29/18 19:15 09/29/18 19:16 DC 09/29/18 19:48 Sodium Chloride 1,000 ml @ 125 mls/hr 1X ONCE IV 09/29/18 22:15 09/30/18 06:14 DC 09/30/18 00:02 Sodium Polystyrene Sulfonate (Kayexalate) 30 gm 1X ONCE PO 09/29/18 23:45 09/29/18 23:46 DC 09/30/18 00:03 Insulin Human Lispro (HumaLOG) 0-9 UNITS TIDWMEALS SQ 09/30/18 08:00 09/30/18 00:00 Insulin Human Lispro (HumaLOG) 10 units 1X ONCE SQ 09/30/18 01:45 09/30/18 01:50 DC 09/30/18 01:39 Insulin Human Lispro (HumaLOG) 10 units 1X ONCE SQ 09/30/18 03:15 09/30/18 03:16 DC 09/30/18 03:13 Sodium Chloride 1,000 ml @ 100 mls/hr Q10H IV 09/30/18 07:30 09/30/18 08:50 Carvedilol (Coreg) 6.25 mg BIDWMEALS PO 09/30/18 08:00 09/30/18 08:49 Pantoprazole Sodium (Protonix) 40 mg DAILYAC PO 09/30/18 08:00 09/30/18 08:49 Hydralazine HCl (Apresoline) 50 mg BID PO 09/30/18 09:00 09/30/18 08:48 Insulin Human Lispro (HumaLOG) 15 units TIDWMEALS SQ 09/30/18 08:00 09/30/18 10:06 Isosorbide Mononitrate (Imdur) 60 mg DAILY PO 09/30/18 09:00 09/30/18 08:49 ALLERGIES ALLERGIES: Coded Allergies: I S O L A T I O N *CONTACT* (Verified Allergy, Unknown, 12/17/15) mrsa screen + No Known Medication Allergies (Verified Allergy, Unknown, 12/17/15) ROS Review of System 14 point ROS conducted with pertinent positives noted above in HPI. PHYSICAL EXAM General: Alert, Oriented X3, Cooperative, No acute distress HEENT: Atraumatic, Mucous membr. moist/pink Lungs: Clear to auscultation Heart: Regular rate Abdomen: Soft, No tenderness, Other (distended) Extremities: No edema, Normal pulses Skin: No significant lesion Neuro: Normal speech, Sensation intact Psych/Mental Status: Mental status NL, Mood NL MUSCULOSKELETAL: Osteoarthritic changes both hands VITALS VITALS Vital Signs Date Time Temp Pulse Resp B/P (MAP) Pulse Ox O2 Delivery O2 Flow Rate FiO2 09/30/18 11:00 98.7 93 16 145/83 (103) 94 Room Air 98.7 LABS Lab: Laboratory Tests Test 09/29/18 17:56 09/29/18 22:01 09/30/18 00:30 09/30/18 02:56 White Blood Count 9.0 x10^3/uL (4.0-11.0) Red Blood Count 5.46 x10^6/uL (4.30-5.70) Hemoglobin 13.4 g/dL (13.0-17.5) Hematocrit 41.5 % (39.0-53.0) Mean Corpuscular Volume 76 fL (79-100) Mean Corpuscular Hemoglobin 25 pg (25-35) Mean Corpuscular Hemoglobin Concent 32 g/dL (31-37) Red Cell Distribution Width 17.9 % (11.5-14.5) Platelet Count 325 x10^3/uL (140-400) Neutrophils (%) (Auto) 69 % (31-73) Lymphocytes (%) (Auto) 24 % (24-48) Monocytes (%) (Auto) 6 % (0-9) Eosinophils (%) (Auto) 1 % (0-3) Basophils (%) (Auto) 1 % (0-3) Neutrophils # (Auto) 6.1 x10^3uL (1.8-7.7) Lymphocytes # (Auto) 2.2 x10^3/uL (1.0-4.8) Monocytes # (Auto) 0.5 x10^3/uL (0.0-1.1) Eosinophils # (Auto) 0.1 x10^3/uL (0.0-0.7) Basophils # (Auto) 0.1 x10^3/uL (0.0-0.2) Prothrombin Time 12.3 SEC (11.7-14.0) Prothromb Time International Ratio 0.9 (0.8-1.1) Sodium Level 127 mmol/L (136-145) Potassium Level 5.6 mmol/L (3.5-5.1) Chloride Level 91 mmol/L (98-107) Carbon Dioxide Level 23 mmol/L (21-32) Anion Gap 13 (6-14) Blood Urea Nitrogen 43 mg/dL (8-26) Creatinine 2.1 mg/dL (0.7-1.3) Estimated GFR (Cockcroft-Gault) 39.6 BUN/Creatinine Ratio 20 (6-20) Glucose Level 784 mg/dL (70-99) 659 mg/dL (70-99) Calcium Level 9.9 mg/dL (8.5-10.1) Magnesium Level 2.1 mg/dL (1.8-2.4) Total Bilirubin 0.7 mg/dL (0.2-1.0) Aspartate Amino Transf (AST/SGOT) 14 U/L (15-37) Alanine Aminotransferase (ALT/SGPT) 16 U/L (16-63) Alkaline Phosphatase 116 U/L (46-116) Creatine Kinase 233 U/L (39-308) Creatine Kinase MB (Mass) 1.4 ng/mL (0.0-3.6) Creatine Kinase MB Relative Index 0.6 % (0-4) Troponin I Quantitative 0.279 ng/mL (0.000-0.055) 0.297 ng/mL (0.000-0.055) FB-Zhu-W-Type Natriuretic Peptide 436 pg/mL (0-124) Total Protein 8.2 g/dL (6.4-8.2) Albumin 3.5 g/dL (3.4-5.0) Albumin/Globulin Ratio 0.7 (1.0-1.7) Lipase 1318 U/L (73-393) Thyroid Stimulating Hormone (TSH) 0.587 uIU/mL (0.358-3.74) Urine Collection Type Unknown Urine Color Yellow Urine Clarity Clear Urine pH 5.0 Urine Specific [place] 1.025 Urine Protein Negative mg/dL (NEG-TRACE) Urine Glucose (UA) >=1000 mg/dL (NEG) Urine Ketones (Stick) Negative mg/dL (NEG) Urine Blood Negative (NEG) Urine Nitrite Negative (NEG) Urine Bilirubin Negative (NEG) Urine Urobilinogen Dipstick 0.2 mg/dL (0.2 mg/dL) Urine Leukocyte Esterase Negative (NEG) Urine RBC 0 /HPF (0-2) Urine WBC 0 /HPF (0-4) Urine Squamous Epithelial Cells Occ /LPF Urine Bacteria 0 /HPF (0-FEW) Urine Opiates Screen Pos (NEG) Urine Methadone Screen Neg (NEG) Urine Barbiturates Neg (NEG) Urine Phencyclidine Screen Neg (NEG) Urine Amphetamine/Methamphetamine Neg (NEG) Urine Benzodiazepines Screen Neg (NEG) Urine Cocaine Screen Neg (NEG) Urine Cannabinoids Screen Neg (NEG) Urine Ethyl Alcohol Neg (NEG) Glucose (Fingerstick) 532 mg/dL (70-99) Test 09/30/18 04:00 09/30/18 04:08 09/30/18 04:19 09/30/18 07:36 White Blood Count 9.3 x10^3/uL (4.0-11.0) Red Blood Count 5.34 x10^6/uL (4.30-5.70) Hemoglobin 12.8 g/dL (13.0-17.5) Hematocrit 40.5 % (39.0-53.0) Mean Corpuscular Volume 76 fL (79-100) Mean Corpuscular Hemoglobin 24 pg (25-35) Mean Corpuscular Hemoglobin Concent 32 g/dL (31-37) Red Cell Distribution Width 17.6 % (11.5-14.5) Platelet Count 319 x10^3/uL (140-400) Neutrophils (%) (Auto) 54 % (31-73) Lymphocytes (%) (Auto) 36 % (24-48) Monocytes (%) (Auto) 8 % (0-9) Eosinophils (%) (Auto) 1 % (0-3) Basophils (%) (Auto) 1 % (0-3) Neutrophils # (Auto) 5.1 x10^3uL (1.8-7.7) Lymphocytes # (Auto) 3.4 x10^3/uL (1.0-4.8) Monocytes # (Auto) 0.7 x10^3/uL (0.0-1.1) Eosinophils # (Auto) 0.1 x10^3/uL (0.0-0.7) Basophils # (Auto) 0.1 x10^3/uL (0.0-0.2) Sodium Level 133 mmol/L (136-145) Potassium Level 4.2 mmol/L (3.5-5.1) Chloride Level 95 mmol/L (98-107) Carbon Dioxide Level 25 mmol/L (21-32) Anion Gap 13 (6-14) Blood Urea Nitrogen 37 mg/dL (8-26) Creatinine 2.0 mg/dL (0.7-1.3) Estimated GFR (Cockcroft-Gault) 41.9 Glucose Level 476 mg/dL (70-99) Calcium Level 9.4 mg/dL (8.5-10.1) Troponin I Quantitative 0.311 ng/mL (0.000-0.055) Triglycerides Level 141 mg/dL (0-150) Cholesterol Level 189 mg/dL (0-200) LDL Cholesterol, Calculated 132 mg/dL (0-100) VLDL Cholesterol, Calculated 28 mg/dL (0-40) Non-HDL Cholesterol Calculated 160 mg/dL (0-129) HDL Cholesterol 29 mg/dL (40-60) Cholesterol/HDL Ratio 6.5 Lipase 514 U/L (73-393) Glucose (Fingerstick) 440 mg/dL (70-99) 436 mg/dL (70-99) 174 mg/dL (70-99) STRESS TEST STRESS TEST 1. Regadenoson cardioisotope stress test showed diaphragmatic attenuation artifact without any evidence of ischemia or infarct. 2. Mild left ventricle systolic dysfunction with ejection fraction catheter at 41%. 3. Low risk for cardiac events. DATE: 05/31/18 1234 HEART CATH HEART CATH FINDINGS 1. Hemodynamics: Left ventricular end-diastolic pressure 20 mmHg. No pullback gradient across the aortic valve. 2. Coronary angiography: a. The left main coronary artery arose from the left sinus of Valsalva, gave rise to the left anterior descending and left circumflex arteries and did not show any significant stenosis. b. The left anterior descending artery did not show any significant stenosis. c. The left circumflex artery was a large and dominant vessel that did not show any significant stenosis. d. The right coronary artery was a nondominant vessel that did not show any significant stenosis. Conclusion No significant coronary artery disease Recommendations Optimization of medical therapy for nonischemic cardiomyopathy. Consider repeating 2-D echo in 3 months to evaluate the need for AICD implantation. DATE: 12/16/15 1305 ASSESSMENT/PLAN ASSESSMENT/PLAN 1. NSTEMI; highest 0.311 in the setting of NILAY and significant hyperglycemia. Cath 2015 without significant obstructive disease and MPI 05/2018 without and evidence of ischemia or infarct 2. Hx of NICM: past EF 15-20%. Echo showed good recovery with EF at 55% 4. Accelerated hypertension; better controlled 5. Hyperlipidemia; LDL 132 6. Diabetes, II; with significant hyperglycemia. noncompliant with treatment at home 7. NILAY, hyperkalemia Recommendations Continue BB, add statin, ASA. Agree with holding ACEi with NILAY Supportive care Glucose control as per PCP No further cardiac workup warranted at this time EL MO APRN Sep 30, 2018 12:26
[2018-09-30] MEDS: ASPIRIN ENTERIC COATED 81 MG TABLET.DR. PO SCH (17:48)
[2018-09-30] MEDS ORDERED: INSULIN GLARGINE 300 UNITS/3 ML INSULN.PEN. SQ SCH (21:00)
[2018-09-30] MEDS: ATORVASTATIN CALCIUM 20 MG TABLET PO SCH (21:05)
[2018-09-30 23:12] LABS: HEMOGLOBIN A1C 12.9 % (4.8-5.6)
--- NOTE | 2018-09-30 23:29 | CONS ---
DATE OF CONSULTATION: REASON FOR CONSULTATION: Renal failure. HISTORY OF PRESENT ILLNESS: This is a 57-year-old gentleman who presents to the Emergency Department with left flank and shoulder pain. He is being admitted with concern for pancreatitis. Also felt to have non-ST segment elevation myocardial infarction. The patient's history is of note for diabetes mellitus, hypertension, previous myocardial infarction and congestive cardiomyopathy. Due to increased level of azotemia, Nephrology evaluation was requested. The patient states he has never seen a fiberglasser. Denies history of renal disease, nephrolithiasis or gross hematuria. He states he "may use NSAIDs," but he is not sure. No nausea, vomiting or diarrhea preadmission PAST MEDICAL HISTORY: 1. Diabetes mellitus, hypertension and coronary artery disease with myocardial infarction. 2. Congestive cardiomyopathy. 3. Hyperlipidemia. ALLERGIES: None. MEDICATIONS: Reviewed per med list. FAMILY HISTORY: Noncontributory. SOCIAL HISTORY: The patient resides independently. REVIEW OF SYSTEMS: No headache, sinus problem, nasal drainage, epistaxis, change in vision or hearing. No difficulty swallowing. No fever, chills, cough, sputum production. No hemoptysis. He has had some chest pain, no shortness of breath. No abdominal pain. No nausea, vomiting or diarrhea. No seizures or malignancies. He does have a history of increased urination. PHYSICAL EXAMINATION: GENERAL APPEARANCE: The patient is awake and conversant. HEENT: Clear. NECK: No increased JVD. No thyromegaly, mass or adenopathy. LUNGS: Clear. CARDIAC: Without S3 or rub. ABDOMEN: Soft, nontender and no bruits. EXTREMITIES: Without edema. NEUROLOGIC: Nonfocal, nonlocalized. PSYCHIATRIC: Reduced attention to detail. Appropriate affect. LABORATORY DATA: White count 9.3, hemoglobin 12, hematocrit 40.5 and platelets are 319. Sodium 133, potassium 4.2, chloride 95, CO2 of 25, BUN 37, creatinine 2, GFR 41.9, glucose on admission 784. Lipase is 1318. IMPRESSION: 1. Renal failure -- likely chronic kidney disease stage 4, may also have acute exacerbation from prerenal state and suddenly reduced intake. Also likely has osmotic diuresis due to severe hyperglycemia. 2. Diabetes mellitus with very poor control. 3. Pancreatitis. RECOMMENDATIONS: 1. IV fluid administration and we will trend labs. Abdominal CT reveals no hydronephrosis. 2. Continue to work on glucose control as you are doing. 3. We will follow. YEMI RO MD DR: MAIN/prema JOB#: [id number] / [id number]
[2018-10-01 03:05] VITALS: BP 169/102
[2018-10-01] MEDS: IV NORMAL SALINE 1000ML BAG 1,000 ML IV SCH ×2 (03:30→10:56)
[2018-10-01 06:02] LABS: ALBUMIN 2.8 g/dL (3.4-5.0); ALBUMIN/GLOBULIN RATIO 0.7 (1.0-1.7); CALCIUM 8.2 mg/dL (8.5-10.1); CREATININE 1.5 mg/dL (0.7-1.3); GFR 58.4; POTASSIUM 4.5 mmol/L (3.5-5.1); TOTAL BILIRUBIN 0.7 mg/dL (0.2-1.0); TOTAL PROTEIN 6.7 g/dL (6.4-8.2)
[2018-10-01 07:00] VITALS: BP 164/96
[2018-10-01] MEDS: INSULIN LISPRO 300 UNITS/3 ML INSULN.PEN. SQ SCH ×7 (08:00→17:00)
[2018-10-01] MEDS: PANTOPRAZOLE 40 MG TABLET.DR. PO SCH (08:03)
[2018-10-01] MEDS: CARVEDILOL 6.25 MG TABLET. PO SCH ×2 (08:04→16:39)
[2018-10-01] MEDS: ISOSORBIDE MONONITRATE ER 30 MG TAB.ER.24H PO SCH (08:05)
[2018-10-01] MEDS: ASPIRIN ENTERIC COATED 81 MG TABLET.DR. PO SCH (08:05)
--- NOTE | 2018-10-01 09:45 | NUR ---
Pt. finger stick BG was 388 this am. This nurse paged MD per sliding scale protocol for anything >350. This nurse spoke with MD and informed that she gave the 15units ordered. MD asked if pt. ate breakfast. This nurse said yes. MD told this nurse to recheck finger stick BG in 2 hr. and administer insulin per sliding scale.
--- NOTE | 2018-10-01 10:11 | NUR ---
This nurse rechecked pt. BG per MD. BG was 411. This nurse paged MD and was given orders for insulin. Addendum: 10/01/18 at 1015 by DERRELL GOEL RN Sari villegas paged and was given orders for 15 units humalog now.
[2018-10-01 11:00] VITALS: BP 155/94
--- NOTE | 2018-10-01 11:35 | NUR ---
Pt. BG was 365. This nurse paged . ordered 15units and to recheck in 2 hours.
--- NOTE | 2018-10-01 13:54 | PDOC ---
PROGRESS NOTES Subjective His renal function is back to baseline so no longer needing IVF for that, his sugars are coming down with additional insulin, his A1C was over 12, he does not have a monitor at home and drinks sugary drinks at home but is commited to just drinking water. Will resume his remaining home meds now that renal function is normal Objective Afebrile General: NAD Heart: RRR Lungs: CTA Abd: obese, non tender, good bowel sounds Ext: no edema Creat: 1.5 Vital Signs Vital Signs Date Time Temp Pulse Resp B/P (MAP) Pulse Ox O2 Delivery O2 Flow Rate FiO2 10/01/18 11:00 98.1 67 20 155/94 (114) 96 Room Air 98.1 I & O Intake and Output 10/01/18 07:00 Intake Total 2306.13 ml Output Total 500 ml Balance 1806.13 ml Intake Oral 300 ml IV Total 2006.13 ml Output Urine Total 500 ml # Voids 3 # Bowel Movements 1 Assessment and Plan A/P: (1) Acute pancreatitis - resolved, per lab and exam, tolerating diet Status: Acute (2) Acute on Chronic renal failure - back to baseline, DC IVF Status: Acute (3) Hyperglycemia - increase Lantus to 35 from 25, extra SSI, ADA diet, committed to diet changes at home and monitoring sugars Status: Acute (4) Hyperkalemia - resolved, monitor Status: Acute (5) Hyponatremia - resolved, monitor Status: Acute (6) NSTEMI (non-ST elevated myocardial infarction) - no further chest pain Status: Acute July ESQUIVEL MD Oct 01, 2018 13:54
[2018-10-01] MEDS: POTASSIUM CHLORIDE 20 MEQ TABLET.ER. PO SCH (14:00)
[2018-10-01 14:49] VITALS: BP 154/92
[2018-10-01] MEDS: FUROSEMIDE 40 MG TABLET. PO SCH (14:52)
[2018-10-01] MEDS: LISINOPRIL 20 MG TABLET PO SCH (14:54)
[2018-10-01 19:45] VITALS: BP 146/85
[2018-10-01] MEDS ORDERED: INSULIN GLARGINE 300 UNITS/3 ML INSULN.PEN. SQ SCH (21:00)
[2018-10-01] MEDS: ATORVASTATIN CALCIUM 20 MG TABLET PO SCH (21:16)
[2018-10-01 23:15] VITALS: BP 163/91
[2018-10-02 03:00] VITALS: BP 178/96
[2018-10-02 06:37] LABS: BASO # 0.1 x10^3/uL (0.0-0.2); BASO % 1 % (0-3); EOS # 0.1 x10^3/uL (0.0-0.7); EOS % 1 % (0-3); HEMATOCRIT 36.6 % (39.0-53.0); HEMOGLOBIN 12.4 g/dL (13.0-17.5); LYMPH # 2.7 x10^3/uL (1.0-4.8); LYMPH % 37 % (24-48); MEAN CORPUSCULAR HEMOGLOBIN 26 pg (25-35); MEAN CORPUSCULAR HGB CONC 34 g/dL (31-37); MEAN CORPUSCULAR VOLUME 76 fL (79-100); MONO # 0.5 x10^3/uL (0.0-1.1); MONO % 7 % (0-9); NEUT # 3.9 x10^3uL (1.8-7.7); NEUT % 54 % (31-73); PLATELET COUNT 280 x10^3/uL (140-400); RED BLOOD COUNT 4.84 x10^6/uL (4.30-5.70); RED CELL DISTRIBUTION WIDTH 17.7 % (11.5-14.5); WHITE BLOOD COUNT 7.2 x10^3/uL (4.0-11.0)
[2018-10-02 06:53] LABS: CALCIUM 8.1 mg/dL (8.5-10.1); CREATININE 1.3 mg/dL (0.7-1.3); GFR 68.8; POTASSIUM 3.7 mmol/L (3.5-5.1)
[2018-10-02 07:34] VITALS: BP 186/102
[2018-10-02] MEDS: PANTOPRAZOLE 40 MG TABLET.DR. PO SCH (08:07)
[2018-10-02] MEDS: POTASSIUM CHLORIDE 20 MEQ TABLET.ER. PO SCH (08:07)
[2018-10-02] MEDS: ASPIRIN ENTERIC COATED 81 MG TABLET.DR. PO SCH (08:07)
[2018-10-02] MEDS: LISINOPRIL 20 MG TABLET PO SCH (08:08)
[2018-10-02] MEDS: ISOSORBIDE MONONITRATE ER 30 MG TAB.ER.24H PO SCH (08:09)
[2018-10-02] MEDS: FUROSEMIDE 40 MG TABLET. PO SCH ×2 (08:09→14:10)
[2018-10-02] MEDS: CARVEDILOL 6.25 MG TABLET. PO SCH (08:09)
[2018-10-02] MEDS: INSULIN LISPRO 300 UNITS/3 ML INSULN.PEN. SQ SCH ×6 (08:13→17:26)
--- NOTE | 2018-10-02 10:01 | PDOC ---
PROGRESS NOTES Subjective Hypertensive this am despite resuming lasix and lisinopril yesterday, glucose down to 63 last jose l but over 250 this am, no CP, no SOA, no GI or concerns Objective Afebrile General: NAD Heart: RRR Lungs: CTA Abd: ND, NT Ext: no C/C/E WBC: 7.2 Hgb: 12.4 K+: 3.7 Creat: 1.3 Vital Signs Vital Signs Date Time Temp Pulse Resp B/P (MAP) Pulse Ox O2 Delivery O2 Flow Rate FiO2 10/02/18 08:09 186/102 10/02/18 07:34 98.2 68 18 95 Room Air 98.2 I & O Intake and Output 10/02/18 07:00 Intake Total 420 ml Balance 420 ml Intake Oral 420 ml # Voids 3 Assessment and Plan Problems Medical Problems: (1) Acute pancreatitis Status: Acute (2) Chronic renal failure Status: Acute (3) Hyperglycemia Status: Acute (4) Hyperkalemia Status: Acute (5) Hyponatremia Status: Acute (6) NSTEMI (non-ST elevated myocardial infarction) Status: Acute Will increase carvedilol to 12. 5 mg bid and increase mealtime Humalog to 18 units and plan on discharge later today July ESQUIVEL MD Oct 02, 2018 10:01
[2018-10-02 11:00] VITALS: BP 151/90
[2018-10-02 15:00] VITALS: BP 157/95
[2018-10-02 16:26] VITALS: BP 154/90
[2018-10-02] MEDS ORDERED: INSULIN LISPRO 300 UNITS/3 ML INSULN.PEN. SQ ONE (16:30)
[2018-10-02] MEDS ORDERED: CARVEDILOL 12.5 MG TABLET. PO SCH (17:00)
--- NOTE | 2018-10-02 17:15 | NUR ---
Pt BG 255, Dr. King sanchez, new order for discharge.
[2018-10-02] MEDS ORDERED: CARV12.511 PO (17:16)
--- NOTE | 2018-10-02 17:52 | NUR ---
Pt with BG of 336, Rell Uribe aware, order for 10 units Humalog now, then recheck at dinner with scheduled dosing and possible discharge.
--- NOTE | 2018-10-02 17:53 | NUR ---
Pt discharged to home, with all discharge instructions, scripts, education. Pt states understanding without further questions. Pt left with staff assist and family.
--- NOTE | 2018-10-02 18:44 | PDOC3 ---
Discharge Summary [facility] Date of Admission: Sep 29, 2018 Discharge Date: Oct 02, 2018 Final Diagnosis Problems Medical Problems: (1) Acute pancreatitis Status: Acute (2) Chronic renal failure Status: Acute (3) Hyperglycemia Status: Acute (4) Hyperkalemia Status: Acute (5) Hyponatremia Status: Acute (6) NSTEMI (non-ST elevated myocardial infarction) Status: Acute CONSULTS renal, cardiology Procedures none Brief Hospital Course Mr. Bustos is a 57 old who presented with: (1) Acute pancreatitis - resolved, per lab and exam, tolerating diet (2) Acute on Chronic renal failure - back to baseline after IV hydration (3) Hyperglycemia with uncontrolled type 2 diabetes with A1C of 12.6- increased Lantus to 35 from 25, increased Humalog from 15 to 18 units tid with meals, ADA diet, committed to diet changes at home and monitoring sugars (4) Hyperkalemia - resolved with IV hydration, monitor (5) Hyponatremia - resolved, monitor (6) NSTEMI (per enzymes but likely due to NILAY as MPI normal 05/29) - no further chest pain, cardiology did not recommend any intervention (7) HTN - carvedilol increased from 6.25 mg bid to 12.5 mg bid Disposition home CONDITION AT DISCHARGE: Improved, Stable Scheduled Carvedilol (Carvedilol ), 12.5 MG PO BIDWMEALS, (Reported) Furosemide (Furosemide), 40 MG PO BID92 Hydralazine Hcl (Hydralazine Hcl), 50 MG PO BID Insulin Aspart (Novolog Flexpen), 15 UNIT SQ TIDAC, (Reported) Insulin Glargine,Hum.rec.anlog (Lantus Solostar), 25 UNIT SQ HS, (Reported) Isosorbide Mononitrate (Isosorbide Mononitrate Er), 60 MG PO DAILY, (Reported) Lisinopril (Lisinopril), 40 MG PO DAILY, (Reported) Pantoprazole Sodium (Pantoprazole Sodium), 40 MG PO DAILYAC Potassium Chloride (Potassium Chloride), 20 MEQ PO DAILY, (Reported) Discontinued Medications Carvedilol (Coreg ), 6.25 MG PO BIDWMEALS, (Reported) Follow Up [address] Sheridan, he agrees to begin testing his sugars July ESQUIVEL MD Oct 02, 2018 18:44
[2018-10-02] MEDS ORDERED: INSU100I13 SQ (18:47)
[2018-10-02] MEDS ORDERED: INSU100I17 SQ (18:47)
== END 2018-10-02 17:54 | disposition home or self-care (01) | DRG 438 ==
LOC: ER 17:24 → 2 NORTH 20:28
PROVIDERS: ADMIT Family Medicine; ATTEND Family Medicine
DX: K85.90 Acute pancreatitis without necrosis or infection, unspecified (principal); I21.4 Non-ST elevation (NSTEMI) myocardial infarction; E11.00 Type 2 diabetes mellitus with hyperosmolarity without nonketotic hyperglycemic-hyperosmolar coma (NKHHC); N18.4 Chronic kidney disease, stage 4 (severe); N17.9 Acute kidney failure, unspecified; I42.0 Dilated cardiomyopathy; E87.1 Hypo-osmolality and hyponatremia; I13.0 Hypertensive heart and chronic kidney disease with heart failure and stage 1 through stage 4 chronic kidney disease, or unspecified chronic kidney disease; I50.20 Unspecified systolic (congestive) heart failure; E11.22 Type 2 diabetes mellitus with diabetic chronic kidney disease; E78.5 Hyperlipidemia, unspecified; E87.5 Hyperkalemia; F17.210 Nicotine dependence, cigarettes, uncomplicated; I25.10 Atherosclerotic heart disease of native coronary artery without angina pectoris; Z91.19 Patient's noncompliance with other medical treatment and regimen; I25.2 Old myocardial infarction; Z79.4 Long term (current) use of insulin; Z82.49 Family history of ischemic heart disease and other diseases of the circulatory system
CPT/HCPCS: 36415; 71045; 74176; 80048; 80053; 80061; 80307; 81001; 82553; 82947; 82962; 83036; 83690; 83735; 83880; 84443; 84484; 85025; 85610; 87641; 93005; 93306; 96374; 96375; J1815; J2270; J7030; 99285-25

== ENCOUNTER → 2019-08-24 | Outpatient (CLI) | payer OTHER ==
[2019-01-01 17:38] VITALS: BP 117/78
[~2019-08-24] MED LIST changes: +ASPI-630 PO; +CLON0.1T PO; -PANT40TA5 PO; +PANT40TA77 PO; +POTA20TA4 PO; -POTA20TA82 PO
--- NOTE | 2019-08-24 16:14 | CARD ---
MR#: [id number] Date of Study: 08/24/2019 Ordering Physician: ABI RAMIREZ, Referring Physician: ABI RAMIREZ, Tech: Buffy Darby RDCS APPROVED REPORT EXAM: Two-dimensional and M-mode echocardiogram with Doppler and color Doppler. Other Information Quality : Technically LimitedHR: 68bpm Rhythm : NSRTechnically limited study due to low parasternal window INDICATION Chronic systolic heart failure RISK FACTORS Hypertension Hyperlipidemia Hx smoking 2D DIMENSIONS RVDd3.2 (2.9-3.5cm)Left Atrium(2D)4.2 (1.6-4.0cm) IVSd1.3 (0.7-1.1cm)Aortic Root(2D)3.7 (2.0-3.7cm) LVDd4.9 (3.9-5.9cm)LVOT Diameter2.5 (1.8-2.4cm) PWd1.5 (0.7-1.1cm)LVDs2.4 (2.5-4.0cm) FS (%) 52.0 %SV94.1 ml Aortic Valve AoV Peak Harjit.131.5cm/Jenifer Peak GR.6.9mmHg LVOT Peak Harjit.93.0cm/sAVA (VMAX)3.52cm2 AI P 1/2 Slct415th Mitral Valve MV E Luaksyfa34.5cm/sMV DECEL [id number] MV A Xxyipetz61.8cm/sE/A Ratio0.5 MV A [id number] Pulmonary Valve PV Peak Lrjqhaki67.6cm/s Tricuspid Valve RAP [id number] LEFT VENTRICLE The left ventricle is normal size. There is mild concentric left ventricular hypertrophy. The systoli c funtion is low normal. LV ejection Fraction is estimated at 50%. There is normal LV segmental wall motion. Transmitral Doppler flow pattern is Grade I-abnormal relaxation pattern. There is no ventricu lar septal defect visualized. RIGHT VENTRICLE The right ventricle is normal size. The right ventricular systolic function is normal. ATRIA The left atrium size is normal. The right atrium size is normal. The interatrial septum is aneurysmal . AORTIC VALVE The aortic valve is normal in structure and function. Doppler and Color Flow revealed trace to mild a ortic regurgitation. There is no significant aortic valvular stenosis. MITRAL VALVE The mitral valve is normal in structure and function. There is no evidence of mitral valve prolapse. There is no mitral valve stenosis. Doppler and Color-flow revealed trace mitral regurgitation. TRICUSPID VALVE The tricuspid valve is normal in structure and function. Doppler and Color Flow revealed no tricuspid valve regurgitation noted. There is no tricuspid valve stenosis. PULMONIC VALVE The pulmonary valve is normal in structure and function. Doppler and Color Flow revealed no pulmonic valvular regurgitation. There is no pulmonic valvular stenosis. GREAT VESSELS The aortic root is normal in size. The ascending aorta is normal in size. The pulmonary artery is nor mal. The IVC is normal in size and collapses >50% with inspiration. PERICARDIAL EFFUSION There is no pleural effusion. There is no evidence of significant pericardial effusion. Critical Notification Critical Value: No <Conclusion> The left ventricle is normal size. The systolic funtion is low normal. LV ejection Fraction is estimated at 50%. There is mild concentric left ventricular hypertrophy. Doppler and Color Flow revealed trace to mild aortic regurgitation. There is no significant aortic valvular stenosis. Doppler and Color-flow revealed trace mitral regurgitation. Doppler and Color Flow revealed no tricuspid valve regurgitation noted. Signed by : Williams Martinez MD Electronically Approved : 08/24/2019 16:14:06
== END | disposition home or self-care (01) ==
LOC: ECHO 13:56
PROVIDERS: ATTEND Internal Medicine Cardiovascular Disease
DX: I35.1 Nonrheumatic aortic (valve) insufficiency (principal); I51.7 Cardiomegaly; I50.22 Chronic systolic (congestive) heart failure
CPT/HCPCS: 93306

== ENCOUNTER → 2021-03-19 | Outpatient (CLI) | payer OTHER ==
[2019-01-01 17:38] VITALS: BP 117/78
[~2021-03-19] MED LIST changes: -ISOS30TA4 PO; +ISOS30TA68 PO; -ISOS60TA2 PO; +ISOS60TA55 PO; -LISI-338 PO; +LISI-517 PO; +LISI10TA16 PO; -LISI10TA2 PO
--- NOTE | 2021-03-19 15:05 | CARD ---
MR#: [id number] Date of Study: 03/19/2021 Ordering Physician: ABI RAMIREZ, Referring Physician: ABI RAMIREZ, Tech: Aretha Bowman [facility] APPROVED REPORT EXAM: Two-dimensional and M-mode echocardiogram with Doppler and color Doppler. Other Information Quality : AverageHR: 83bpm INDICATION Congestive Heart Failure RISK FACTORS Hypertension Diabetes 2D DIMENSIONS Left Atrium(2D)4.4 (1.6-4.0cm)IVSd2.0 (0.7-1.1cm) Aortic Root(2D)3.9 (2.0-3.7cm)LVDd5.9 (3.9-5.9cm) LVOT Diameter2.2 (1.8-2.4cm)PWd1.6 (0.7-1.1cm) LVDs4.6 (2.5-4.0cm)FS (%) 21.0 % SV71.7 ml Aortic Valve AoV Peak Harjit.181.8cm/sAoV VTI32.0cm AO Peak GR.13.2mmHgLVOT Peak Harjit.127.4cm/s LVOT VTI 23.74cmAO Mean GR.7mmHg SONIA (VMAX)1.87fj1FMZ (VTI)2.71cm2 AI P 1/2 Gdch211st Mitral Valve MV E Khdtjyjc45.1cm/sMV DECEL [id number] MV A Djvvzhqx11.4cm/sMV E Mean Gr.2mmHg MV DDB22npB/A Ratio0.9 MVA (PHT)4.82cm2 TDI E/Lateral E'12.9E/Medial E'13.3 Pulmonary Valve PV Peak Nezehpyr24.3cm/sPV Peak Grad.3mmHg Tricuspid Valve TR P. Jpzxlkun089uj/sRAP OVPXAEGW3aiLt TR Peak Gr.91ctMrURXE64pjRv LEFT VENTRICLE The left ventricle is normal size. There is moderate concentric left ventricular hypertrophy. The lef t ventricular systolic function is at the lower limits of normal. The Ejection Fraction is estimated at 50%. Wall motion consistent with conduction abnormality. Transmitral Doppler flow pattern is Grade I-abnormal relaxation pattern. RIGHT VENTRICLE The right ventricle is normal size. There is normal right ventricular wall thickness. The right ventr icular systolic function is normal. ATRIA The left atrium is mildly dilated. The right atrium is borderline dilated. The atrial septum is aneur ysmal. AORTIC VALVE The aortic valve is normal in structure and function. Doppler and Color Flow revealed trace aortic re gurgitation. Calculated aortic valve area is 2.34 cm2 with maximum pressure gradient of 18 mmHg and m samia pressure gradient of 9 mmHg. There is no significant aortic valvular stenosis. MITRAL VALVE The mitral valve is normal in structure and function. There is no evidence of mitral valve prolapse. There is no mitral valve stenosis. Doppler and Color-flow revealed trace mitral regurgitation. TRICUSPID VALVE The tricuspid valve is normal in structure and function. Doppler and Color Flow revealed trace tricus pid regurgitation with an estimated PAP of 24 mmHg. There is no tricuspid valve stenosis. PULMONIC VALVE The pulmonic valve is not well visualized. Doppler and Color Flow revealed trace pulmonic valvular re gurgitation. GREAT VESSELS The aortic root is normal in size. The IVC is normal in size and collapses >50% with inspiration. PERICARDIAL EFFUSION There is no evidence of significant pericardial effusion. Critical Notification Critical Value: No <Conclusion> The left ventricle is normal size. The left ventricular systolic function is at the lower limits of normal. The Ejection Fraction is estimated at 50%. Wall motion consistent with conduction abnormality. There is moderate concentric left ventricular hypertrophy. Doppler and Color Flow revealed trace aortic regurgitation. There is no significant aortic valvular stenosis. Doppler and Color-flow revealed trace mitral regurgitation. Doppler and Color Flow revealed trace tricuspid regurgitation with an estimated PAP of 24 mmHg. Signed by : Williams Martinez MD Electronically Approved : 03/19/2021 15:05:38
== END ==
LOC: ECHO 12:37
PROVIDERS: ATTEND Internal Medicine Cardiovascular Disease
DX: I51.7 Cardiomegaly (principal); I50.22 Chronic systolic (congestive) heart failure; I10 Essential (primary) hypertension; E11.9 Type 2 diabetes mellitus without complications
CPT/HCPCS: 93306